=== PATIENT | male | born 1955 | race Caucasian/White ===

== ENCOUNTER 2017-09-15 01:53 | Observation (INO) | payer SELFPAY ==
[2017-09-15 02:48] LABS: Troponin I 0.038 ng/mL (< 0.028)
[2017-09-15] MEDS ORDERED: Enoxaparin Sodium 100 MG/ML SYRINGE ONE (03:00)
[2017-09-15] MEDS ORDERED: Nitroglycerin 2% Ointment 1 INCH/1 GM Packet ONE (03:00)
[2017-09-15] MEDS ORDERED: Acetaminophen 325 MG TAB PO PRN (05:19)
[2017-09-15 06:47] VITALS: BMI 34.6
[2017-09-15] MEDS: Famotidine 20 MG TAB PO SCH ×2 (08:11→20:24)
[2017-09-15 08:19] LABS: CKMB 1.1 ng/mL (0-6.6); Troponin I 0.038 ng/mL (< 0.028)
[2017-09-15] MEDS ORDERED: Tamsulosin HCl 0.4 MG CAP PO SCH (09:00)
[2017-09-15] MEDS ORDERED: Gabapentin 300 MG CAP PO SCH (09:00)
[2017-09-15] MEDS ORDERED: Aspirin 325 MG TAB PO SCH (09:00)
[2017-09-15] MEDS ORDERED: oxyCODONE/Acetaminophen 5 mg/325 mg Tablet PO SCH ×2 (09:00)
[2017-09-15] MEDS ORDERED: Regadenoson 0.4 MG/5 ML SYRINGE ONE (11:05)
[2017-09-15] MEDS ORDERED: Iopamidol 370 76% 50 ML VIAL FS ONE (11:08)
[2017-09-15] MEDS ORDERED: Iopamidol 370 76% 100 ML VIAL ONE (11:08)
[2017-09-15] MEDS ORDERED: Polyethylene Glycol 3350 17 GM Packet PO PRN (13:30)
[2017-09-15] MEDS ORDERED: Betamethasone Val 0.1% Lotion 60 ML BOT TOP PRN (13:30)
[2017-09-15] MEDS ORDERED: Gabapentin 300 MG CAP PO PRN (13:30)
[2017-09-15] MEDS ORDERED: Lidocaine 1% (PF) 30 ML VIAL ONE (13:55)
[2017-09-15] MEDS: oxyCODONE/Acetaminophen 5 mg/325 mg Tablet PO PRN ×2 (14:29→20:24)
[2017-09-15] MEDS ORDERED: Communication Order-Pharmacy FS SCH (15:00)
[2017-09-15] MEDS ORDERED: Heparin 10,000 UNITS/1 ML VIAL ONE (15:32)
[2017-09-15] MEDS ORDERED: Nitroglycerin 100MG/250ML BOT 250 ML ONE (15:32)
--- NOTE | 2017-09-15 15:34 | HP ---
DATE OF ADMISSION: 09/15/2017 CHIEF COMPLAINT: Chest pain. HISTORY OF PRESENT ILLNESS: This is a 61-year-old morbidly obese white male with a known history of bradycardia with pacemaker implantation in more than 4 years ago. The patient was in his usual state of health for the past 1 week suffering with acute chest pain on and off lasting for more than 30-40 minutes. Pain is located in the left precordium, around 10 in intensity, more heaviness and radiati ng to the left shoulder, not associated with nausea or vomiting and aggravated on movement or walking and relieved on resting. The patient came to the ER and was noted to have elevated troponins initia lly and later it was coming down, so the patient was scheduled for a nuclear stress test by the ER ph ysician after discussing with director [facility] Cardiology. Patient was seen on the floor following the stress test. He was alert and oriented, did not appear to be having any acute chest pain right now. Dr. Jus benjamin is consulted who planned to do a cardiac catheterization later today. The patient has otherwise no other comorbidities except for morbid obesity. PAST MEDICAL HISTORY: History of pacemaker. PAST SURGICAL HISTORY: 1. Pacemaker placement. 2. History of colon abscess and a portion of the colon was removed because of that in the past. SOCIAL HISTORY: The patient is not a known smoker. No history of alcohol, no history of illicit kitty g use. FAMILY HISTORY: Patient has significant family history of coronary artery disease in his brother and father at a young age. HOME MEDICATIONS: 1. Gabapentin 300 mg p.o. daily. 2. Oxycodone 1 tab p.o. q.6 hours. 3. Polyethylene glycol. 4. Ranitidine. 5. Sertraline 50 mg p.o. daily. 6. Tamsulosin. 7. Triamcinolone. REVIEW OF SYSTEMS: All 12 systems were reviewed with the patient thoroughly and found to be negative at this time. Systems reviewed, HEENT, CVS, ORACLE DEVELOPER, respiratory, GI, , musculoskeletal, skin and int egument, psychiatric. PHYSICAL EXAMINATION: VITAL SIGNS: Blood pressure is 147/72, heart rate is 62, respiration rate 18, saturation 93% on room air. GENERAL: The patient is moderately built, moderately nourished, does not appear to be in acute distr ess. CARDIOVASCULAR: S1, S2 normal. No murmurs, rubs or gallops. LUNGS: Bilateral air entry was equal. No wheezing, no crackles. ABDOMEN: Soft, nontender, no guarding, no rebound tenderness. Bowel sounds normal. MUSCULOSKELETAL: No calf tenderness. No pedal edema. No joint tenderness. No joint swelling. SKIN: No cyanosis, no erythema, no rash, no pallor. CENTRAL NERVOUS SYSTEM: Cranial nerve examination II through XII intact. No focal deficits were not ed. LABORATORY DATA AND X-RAY FINDINGS: The patient had no labs done in the ER as this was a transfer fr om another ER, his initial troponin was 0.038 and triglycerides were 270. Chest x-ray was unremarkab le according to the ER physician. ASSESSMENT: 1. Acute coronary syndrome. 2. Non-ST elevation myocardial infarction. 3. Morbid obesity. 4. Chronic cervical spine arthritis. 5. History of pacemaker. PLAN: 1. The plan is to closely monitor this patient today. Patient is very uncomfortable going home with this ongoing chest pain. We will keep the patient tonight as the patient is planned for cardiac cat heterization later in the afternoon. The results of the stress test are not available for me at this time. We will follow with the cardiology recommendations. We will continue the patient on a beta b locker and aspirin. 2. The patient has cervical spine arthritis. We will continue with his chronic home medications. 3. The patient has a history of pacemaker. No evidence of any pacemaker abnormalities were noted on the telemetry. We will closely monitor. 4. Morbid obesity. Encourage the patient to lose weight for better health. 5. Deep venous thrombosis prophylaxis. Lovenox 40 mg subcu daily. 1 spent 70 minutes on this patient.
--- NOTE | 2017-09-15 15:35 | NM ---
RADIONUCLIDE STRESS REST MYOCARDIAL PERFUSION SCAN WITH CT ATTENUATION CORRECTION AND SPECT IMAGING LEFT VENTRICULAR WALL MOTION EVALUATION AND EJECTION FRACTION: History: Chest pain. FINDINGS: Lexiscan protocol was used. There is homogeneous uptake of radiotracer throughout the left ventricula r myocardium without focal perfusion defect or reversibility. QGS analysis of gated SPECT images show s no focal wall motion abnormalities. Left ventricular ejection fraction is calculated at 64%. IMPRESSION: Normal myocardial perfusion scan. Normal LDEF. POS: [facility]
[2017-09-15] MEDS ORDERED: Verapamil 5 MG/2 ML VIAL ONE ×2 (15:56→16:04)
[2017-09-15] MEDS ORDERED: Clopidogrel Bisulfate 300 MG TAB ONE (16:03)
[2017-09-15] MEDS ORDERED: Adenosine 6 MG/2 ML VIAL ONE (16:04)
[2017-09-15] MEDS ORDERED: Milk Of Magnesia 30 ML UDCUP PO PRN (16:26)
[2017-09-15] MEDS ORDERED: Nitroglycerin 0.4 MG TAB (25 Tab Bottle) SL PRN (16:26)
[2017-09-15] MEDS ORDERED: cloNIDine 0.1 MG TAB PO PRN (16:26)
[2017-09-15] MEDS ORDERED: Zolpidem Tartrate 5 MG TAB PO PRN (16:26)
[2017-09-15] MEDS ORDERED: Sodium Chloride 0.9% 1,000 ML IV SCH (16:30)
[2017-09-15] MEDS ORDERED: Fentanyl 100 MCG/2 ML VIAL ONE (17:02)
[2017-09-15] MEDS ORDERED: Fentanyl 100 MCG/2 ML VIAL SLOW IVP PRN (17:31)
[2017-09-16] MEDS: oxyCODONE/Acetaminophen 5 mg/325 mg Tablet PO PRN ×2 (03:40→10:46)
[2017-09-16 04:40] LABS: #Basophils 0.1 thou/uL (0.0-0.2); #Eosinphils 0.3 thou/uL (0.0-0.7); #Lymphocytes 2.8 thou/uL (1.20-3.40); #Monocytes 0.5 thou/uL (0.11-0.59); #Neutrophils 3.3 thou/uL (1.40-6.50); %Eosinophils 4.4 % (0.0-10.0); %Lymphocytes 40.8 % (21.0-51.0); %Monocytes 6.7 % (0.0-10.0); %Neutrophils 47.1 % (42.0-75.0); Hemoglobin 15.9 g/dL (14.0-18.0); Mean Corpuscular HGB CONC 34.5 g/dL (32.0-36.0); Mean Corpuscular Hemoglobin 31.1 pg (27.0-31.0); Mean Corpuscular Volume 90.1 fl (80.0-94.0); Mean Platelet Volume 7.9 fL (7.4-10.4); Platelet Count 176 thou/uL (130-400); RBC Distribution Width 12.2 % (11.5-14.5)
[2017-09-16 04:56] LABS: ALT (SGPT) 20 U/L (8-55); AST (SGOT) 20 U/L (5-34); Albumin 3.9 g/dL (3.4-4.8); Alkaline Phosphatase 53 U/L (40-150); Anion Gap 10 mmol/L (10-20); BUN (Urea Nitrogen) 11 mg/dL (8.4-25.7); Bilirubin, Total 0.5 mg/dL (0.2-1.2); Calc. Creatinine Clearance 120 mL/min (70-130); Calcium 9.2 mg/dL (7.8-10.44); Carbon Dioxide 28 mmol/L (23-31); Chloride 105 mmol/L (98-107); Estimated GFR-MDRD 78; Globulin 2.8 g/dL (2.4-3.5); Glucose 72 mg/dL (80-115); Protein, Total 6.7 g/dL (5.8-8.1); Sodium 139 mmol/L (136-145)
--- NOTE | 2017-09-16 08:31 | PDOC.PN ---
- Subjective Encounter Start Date: 09/16/17 Encounter Start Time: 08:29 Mr. Maria was seen today in follow-up of CAd with [facility]. He denies having any chest pain, and denies feeling short of breath. He has walked some without problems. - Objective Resuscitation Status: Resuscitation Status FULL:Full Resuscitation MAR Reviewed: Yes Vital Signs & Weight: Vital Signs (12 hours) Temp Pulse Resp BP BP Pulse Ox 09/16/17 07:15 97.7 F 60 16 148/83 H 93 L 09/16/17 07:07 97.7 F 60 16 09/16/17 03:40 60 18 166/91 H 97 09/16/17 00:32 61 18 150/69 H 93 L 09/16/17 00:00 18 94 L 09/15/17 23:30 61 16 155/68 H 96 09/15/17 22:30 60 18 148/81 H 95 09/15/17 21:30 61 16 130/73 94 L Weight Weight 236 lb 1.6 oz I&O: 09/15/17 09/16/17 09/17/17 06:59 06:59 06:59 Intake Total 750 240 Output Total 475 1825 600 Balance -475 -1075 -360 Result Diagrams: 09/16/17 04:08 09/16/17 04:08 Phys Exam - Physical Examination HEENT: PERRLA Respiratory: no wheezing, no rales, no rhonchi, clear to auscultation bilateral Cardiovascular: RRR, no significant murmur, no rub Gastrointestinal: soft, non-tender, no distention, positive bowel sounds Musculoskeletal: no edema, pulses present Dx/Plan (1) Acute coronary syndrome Code(s): I24.9 - ACUTE ISCHEMIC HEART DISEASE, UNSPECIFIED Status: Acute (2) CAD (coronary artery disease) Code(s): I25.10 - ATHSCL HEART DISEASE OF [place] CORONARY ARTERY W/O ANG PCTRS Status: Acute (3) Hypertension Code(s): I10 - ESSENTIAL (PRIMARY) HYPERTENSION Status: Acute (4) Dyslipidemia Code(s): E78.5 - HYPERLIPIDEMIA, UNSPECIFIED Status: Acute - Plan * Acute Coronary syndrome- patient had a STENT placed to the RCA- he is clinically stable, and chest pain free * HTN- blood pressure sis elevated- would like to add a Beta-cheryl, but his heart rate is already low a 60. Will add Lisinopril instead * Dyslipidemia- will re-start Lipitor. * Disposition as per Cardiology
[2017-09-16] MEDS ORDERED: Tamsulosin HCl 0.4 MG CAP PO SCH (09:00)
[2017-09-16] MEDS ORDERED: Enoxaparin Sodium 40 MG/0.4 ML SYRINGE SC SCH (09:00)
[2017-09-16] MEDS ORDERED: Non-Formulary Item 1 EACH (Ranitidine Hcl [Acid Reducer] 75 MG) PO SCH (09:00)
[2017-09-16] MEDS ORDERED: Lisinopril 5 MG TAB PO SCH (09:00)
[2017-09-16] MEDS ORDERED: Clopidogrel Bisulfate 75 MG TAB PO SCH (09:00)
[2017-09-16] MEDS: Famotidine 20 MG TAB PO SCH (09:15)
--- NOTE | 2017-09-16 09:18 | CON ---
DATE OF CONSULTATION: 09/15/2017 REASON FOR CONSULTATION: Chest pain. HISTORY OF PRESENT ILLNESS: Mr. Maria is a 61-year-old gentleman who has been seen and evaluated b y Cardiology at [place], [place]. He has seen Dr. Beatty. He states over the last 3-4 weeks, he is having increasing angina. His pain is accelerated both in i ntensity, duration and frequency. No ameliorating, exacerbating, or precipitating factors present. No previous history of underlying coronary artery disease. He states he underwent coronary angiograp hy 6-7 years ago and was found to have nonobstructive coronary artery disease. PAST MEDICAL AND SURGICAL HISTORY: Pacemaker, acid reflux, colon resection. SOCIAL HISTORY: Positive tobacco use. ALLERGIES: HYDROCODONE. HOME MEDICATIONS: Include sertraline, tamsulosin, gabapentin, MiraLax, oxycodone, ranitidine, and tr iamcinolone. REVIEW OF SYSTEMS: Ten-point review of systems is reviewed and as above, otherwise negative. PHYSICAL EXAMINATION: GENERAL: Patient is a pleasant male who is in no acute distress. The patient appears his stated age . VITAL SIGNS: Blood pressure 150/83, pulse 61, temperature 97.5. NEUROLOGIC: The patient is alert and oriented times 3 with no focal neurologic deficits. HEENT: Sclerae without icterus. Mouth has moist mucous membranes with normal pallor. NECK: No JVD. Carotid upstroke brisk. No bruits bilaterally. LUNGS: Clear to auscultation with unlabored respirations. BACK: No scoliosis or kyphosis. CARDIAC: Regular rate and rhythm with normal S1 and S2. No S3 or S4 noted. No significant rubs, mu rmurs, thrills, or gallops noted throughout the precordium. PMI is not displaced. There is no lorraine ternal heave. ABDOMEN: Soft, nontender, nondistended. No peritoneal signs present. No hepatosplenomegaly. No ab normal striae. EXTREMITIES: 2+ femoral and 2+ dorsalis pedis pulses. No cyanosis, clubbing, or edema. SKIN: No gross abnormalities. PERTINENT LABORATORY DATA: Peak troponin 0.038, triglyceride 270, CK-MB 1.1. IMAGING: EKG shows paced rhythm. Stress rest myocardial perfusion study, no significant ischemia pr esent. IMPRESSION: 1. Chest pain. 2. Tobacco abuse. RECOMMENDATIONS: Mr. Maria's symptoms certainly suggest unstable angina. His symptoms appear to b e accelerating both in frequency and in duration. I discussed medical therapy versus coronary angiog percy. He has eaten. If angiography is to be performed, it would be performed today without sedatio n. We could also wait until tomorrow. At this point, the patient would like to proceed with angiogr aphy today. He is concerned about continuing symptoms if he goes home to [place]. I discussed t he procedure in full detail with Mr. Maria. The risks of the procedure were also discussed. The r isks of the procedure include but are not limited to the following: , stroke, RI, need for linda gency surgery, loss of limb, bleeding, and infection, as well as a reaction to the dye causing kidney failure and needing long-term dialysis. I also discussed the risks of PCI to include all of the abo ve including coronary dissection and perforation in addition to acute stent thrombosis and restenosis . All questions about the procedure were answered. Given the above, the patient agreed to proceed w ith coronary angiography and possible PCI. I also discussed drug-coated and nondrug coated stent plac lana. He states he can be compliant with Plavix if needed for 1 month. No bleeding issues surgerie s planned, back injections. Further recommendations pending the above.
[2017-09-16 11:54] VITALS: BP 139/83; TEMP 97.9
--- NOTE | 2017-09-17 13:53 | DIS ---
PRIMARY CARE PHYSICIAN: Unknown. DATE OF ADMISSION: 09/15/2017 DATE OF DISCHARGE: 09/16/2017 DISCHARGE DISPOSITION: Home. PRIMARY DISCHARGE DIAGNOSES: 1. Acute coronary syndrome. 2. Coronary artery disease, status post stent placement. 3. History of previous pacemaker placement. DISCHARGE MEDICATIONS: Include lisinopril 5 mg p.o. daily, aspirin 81 mg daily, Plavix 75 mg daily, Neurontin 300 mg t.i.d., oxycodone 5/325 one tablet q.6 as needed, MiraLax 17 grams daily, sertraline 50 mg daily, Flomax 0.4 mg daily, and triamcinolone daily. CODE STATUS: FULL CODE. ALLERGIES: HYDROCODONE. PROCEDURES DONE DURING ADMISSION: The patient had a cardiac catheterization in which there was a sin gle-vessel coronary artery disease, and the patient had a successful PCI to the distal RCA with a kitty g-eluting stent. The patient also had a nuclear stress test, which was negative for any reversible i schemia. HOSPITAL COURSE: Mr. Maria is a pleasant 61-year-old gentleman who presented to the emergency room with complaints of chest pain. He was found to have single-vessel coronary artery disease. He unde rwent emergent cardiac catheterization and stent placement. The following day, he was feeling much b emery, completely chest pain free and no complications from the procedure and as such was able to be discharged home and to have close followup with Dr. Scott in the outpatient setting in 1-2 weeks. He was started on aspirin and Plavix as well as lisinopril. A beta-cheryl was not started due to his resting bradycardia.
== END 2017-09-16 13:07 | disposition home or self-care (01) ==
LOC: ERS 01:53 → 2SW 03:22
PROVIDERS: ADMIT Internal Medicine Infectious Disease; ATTEND Internal Medicine Infectious Disease
PROC: 027034Z Dilation of Coronary Artery, One Artery with Drug-eluting Intraluminal Device, Percutaneous Approach (ICD-10-PCS; principal; 2017-09-16)
DX: Z79.899 Other long term (current) drug therapy; Z88.5 Allergy status to narcotic agent; F17.200 Nicotine dependence, unspecified, uncomplicated; I25.10 Atherosclerotic heart disease of native coronary artery without angina pectoris; I24.9 Acute ischemic heart disease, unspecified; Z95.0 Presence of cardiac pacemaker; E78.5 Hyperlipidemia, unspecified; K21.9 Gastro-esophageal reflux disease without esophagitis; I10 Essential (primary) hypertension
CPT/HCPCS: 36415; 76942; 78452; 80053; 80061; 85025; 85347; 90471; 90732; 92928; 93005; 93010; 93017; 93454; 93798; 94760; 96360; 96361; 96372; A4216; A9500; C1725; C1769; C1874; C1887; C9600; G0009; G0378; J0153; J1644; J1650; J2001; J2785; J3010

== ENCOUNTER 2017-10-30 07:32 | Inpatient (IN) | payer OTHER, SELFPAY ==
[2017-10-30] MEDS ORDERED: Nitroglycerin 0.4 MG TAB (25 Tab Bottle) ONE (07:57)
[2017-10-30 08:14] LABS: #Basophils 0.1 thou/uL (0.0-0.2); #Eosinphils 0.4 thou/uL (0.0-0.7); #Lymphocytes 2.5 thou/uL (1.20-3.40); #Monocytes 0.6 thou/uL (0.11-0.59); #Neutrophils 3.8 thou/uL (1.40-6.50); %Basophils 1.8 % (0.0-1.0); %Lymphocytes 34.3 % (21.0-51.0); %Monocytes 7.9 % (0.0-10.0); Hemoglobin 15.6 g/dL (14.0-18.0); Mean Corpuscular HGB CONC 34.7 g/dL (32.0-36.0); Mean Corpuscular Hemoglobin 31.8 pg (27.0-31.0); Mean Corpuscular Volume 91.8 fl (80.0-94.0); Mean Platelet Volume 7.3 fL (7.4-10.4); Platelet Count 200 thou/uL (130-400); RBC Distribution Width 12.3 % (11.5-14.5); White Blood Cell (WBC) Count 7.4 thou/uL (4.8-10.8)
[2017-10-30] MEDS ORDERED: Nitroglycerin 2% Ointment 1 INCH/1 GM Packet ONE (08:18)
[2017-10-30 08:34] LABS: ALT (SGPT) 24 U/L (8-55); AST (SGOT) 16 U/L (5-34); Alkaline Phosphatase 63 U/L (40-150); Anion Gap 8 mmol/L (10-20); BUN (Urea Nitrogen) 14 mg/dL (8.4-25.7); Bilirubin, Total 0.5 mg/dL (0.2-1.2); CK (CPK) 141 U/L (30-200); Calc. Creatinine Clearance 0 mL/min (70-130); Carbon Dioxide 27 mmol/L (23-31); Chloride 107 mmol/L (98-107); Estimated GFR-MDRD 78; Globulin 3.2 g/dL (2.4-3.5); Glucose 99 mg/dL (80-115); Lipase 34 U/L (8-78); Potassium 4.2 mmol/L (3.5-5.1); Protein, Total 7.2 g/dL (5.8-8.1); Sodium 138 mmol/L (136-145)
[2017-10-30 08:38] LABS: CKMB 1.4 ng/mL (0-6.6); Troponin I 0.094 ng/mL (< 0.028)
[2017-10-30] MEDS ORDERED: Enoxaparin Sodium 100 MG/ML SYRINGE ONE (09:54)
--- NOTE | 2017-10-30 10:18 | RAD ---
PORTABLE CHEST: Date: 10/30/17 HISTORY: Chest pain. COMPARISON: 09/14/17. FINDINGS: Heart size within normal limits. Pacemaker is present. Lungs are clear of any infiltrative process. IMPRESSION: No active intrathoracic disease. POS: [facility]
--- NOTE | 2017-10-30 10:25 | PDOC.FPRHP ---
- History of Present Illness Chief Complaint: Chest Pain History of Present Illness: Uli Jarvis is a 62 year old M with PMH of CAD s/p NSTEMI and Cath with JADEN placed on 09/15/17, morbid obesity, GERD who presents to the ED with chest pain. He states that the chest pain has the exact same characteristics as the chest pain he was having when he had his NSTEMI. He describes the chest pain as substernal, radiating to the left arm and neck. Associated with some diaphoresis and dyspnea, no nausea. He states that he was doing well after his stent placement on 09/15/17 but last week he went to cardiac rehab and he was on the treadmill and he started having the chest pain again. He had the pain about 3-4 times that day. Over the last week, the pain has become progressively more frequent, occurring with minimal exertion and even occurring at rest. He denies any fever, chills, n/v, abdominal pain, syncope. He does endorse orthostasis, states that he gets lightheaded when he quickly goes from sitting to standing. ED Course: In the ED, he received nitro, aspirin 324 mg, Lovenox 1 mg/kg - Allergies/Adverse Reactions Allergies Allergy/AdvReac Type Severity Reaction Status Date / Time hydrocodone Allergy itching Verified 09/15/17 05:36 - Home Medications Medication Instructions Recorded Confirmed Type Gabapentin [Neurontin] 300 mg PO TID PRN 09/15/17 10/30/17 History Polyethylene Glycol 3350 [Miralax] 17 gm PO DAILY PRN 09/15/17 10/30/17 History Ranitidine HCl [Acid Table Maker] 75 mg PO DAILY 09/15/17 10/30/17 History Sertraline HCl 50 mg PO DAILY 09/15/17 10/30/17 History Tamsulosin HCl [Flomax] 0.4 mg PO DAILY 09/15/17 10/30/17 History Triamcinolone Acetonide 1 applic TOP TID PRN 09/15/17 10/30/17 History [Triamcinolone Acetonide 0.1% Lotion] oxyCODONE /Acetaminophen [Percocet] 1 tab PO HS 09/15/17 10/30/17 History Aspirin [Aspirin Chewable Tablet] 81 mg PO DAILY tab 09/16/17 10/30/17 Rx Clopidogrel Bisulfate [Plavix] 75 mg PO DAILY #30 tab 09/16/17 10/30/17 Rx Lisinopril [Zestril] 5 mg PO DAILY #30 tab 09/16/17 10/30/17 Rx Comments: Awaiting for medication reconciliation, unable to obtain at this time. - History PMHx: CAD s/p JADEN placement one month ago, Morbid Obesity, GERD, Diverticulosis s/p colon resection PSHx: colon resection, cardiac cath 09/15/17 FHx: Father had LA and CABG at age 60, brother had LA and CABG at age 45 Social: Patient is a 50-60 pack year smoker, denies illicit drug use, only drinks socially - Review of Systems General: reports: fatigue. denies: fever/chills, weight/appetite/sleep changes , night sweats Eyes: denies: eye pain, vision changes ENT: denies: nasal congestion, rhinorrhea Respiratory: reports: cough, shortness of breath, exercise intolerance. denies : congestion Cardiovascular: reports: chest pain. denies: palpitation, edema, paroxysmal nocturnal dyspnea, orthopnea Gastrointestinal: denies: nausea, vomiting, diarrhea, constipation, abdominal pain Genitourinary: denies: incontinence, dysuria, polyuria, discharge Skin: denies: rashes, lesions, jaundice Musculoskeletal: reports: pain (chronic), arthritis/arthralgias. denies: tenderness, stiffness, swelling Neurological: denies: numbness, syncope, seizure, weakness Psychological: denies: anxiety, depression - Vital signs BP: 108/66 HR: 60 RR: 16 Tmax: 97.9 Pox: 94% on RA Wt: 105 kg - Physical Exam Constitutional: NAD, awake, alert and oriented, well developed HEENT: normocephalic and atraumatic, PERRLA, EOMI, conjunctiva clear, no scleral icterus, TM's clear and intact, grossly normal hearing, normal nasal mucosa, MMM, oropharynx clear Neck: supple, FROM, trachea midline, no LAD Chest: no-tender to palpation, no lesions Heart: RRR, normal S1/S2, no murmurs/rubs/gallops, pulses present Lungs: CTAB, no respiratory distress, good air movement, no rales/rhonchi, no wheezing Abdomen: soft, non-tender, bowel sounds present, no masses/distention Musculoskeletal: normal structure, normal tone, ROM grossly normal Neurological: no focal deficit, CN II-XII intact, normal sensation, DTRs 2+ Skin: no rash/lesions, good turgor, capillary refill <2 seconds Heme/Lymphatic: no unusual bruising or bleeding, no purpura, no petechia Psychiatric: normal mood and affect, good judgment and insight, intact recent and remote memory FMR H&P: Results - Labs Result Diagrams: 10/30/17 08:05 10/30/17 08:05 Lab results: WBC 7.4 thou/uL (4.8-10.8) 10/30/17 08:05 Hgb 15.6 g/dL (14.0-18.0) 10/30/17 08:05 Hct 45.0 % (42.0-52.0) 10/30/17 08:05 MCV 91.8 fl (80.0-94.0) 10/30/17 08:05 Plt Count 200 thou/uL (130-400) 10/30/17 08:05 Neutrophils % 51.0 % (42.0-75.0) 10/30/17 08:05 Sodium 138 mmol/L (136-145) 10/30/17 08:05 Potassium 4.2 mmol/L (3.5-5.1) 10/30/17 08:05 Chloride 107 mmol/L (98-107) 10/30/17 08:05 Carbon Dioxide 27 mmol/L (23-31) 10/30/17 08:05 BUN 14 mg/dL (8.4-25.7) 10/30/17 08:05 Creatinine 0.98 mg/dL (0.6-1.3) 10/30/17 08:05 Glucose 99 mg/dL (80-115) 10/30/17 08:05 Calcium 9.0 mg/dL (7.8-10.44) 10/30/17 08:05 Total Bilirubin 0.5 mg/dL (0.2-1.2) 10/30/17 08:05 AST 16 U/L (5-34) 10/30/17 08:05 ALT 24 U/L (8-55) 10/30/17 08:05 Alkaline Phosphatase 63 U/L (40-150) 10/30/17 08:05 Creatine Kinase 141 U/L (30-200) 10/30/17 08:05 CK-MB (CK-2) 1.4 ng/mL (0-6.6) 10/30/17 08:05 B-Natriuretic Peptide 13.1 pg/mL (0-100) 10/30/17 08:05 Serum Total Protein 7.2 g/dL (5.8-8.1) 10/30/17 08:05 Albumin 4.0 g/dL (3.4-4.8) 10/30/17 08:05 Lipase 34 U/L (8-78) 10/30/17 08:05 - EKG Interpretation EKG: EKG showed electronic atrial pacemaker, no ST changes FMR H&P: A/P - Problem List (1) Unstable angina Current Visit: Yes Status: Acute (2) CAD (coronary artery disease) Current Visit: No Status: Chronic Code(s): I25.10 - ATHSCL HEART DISEASE OF [place] CORONARY ARTERY W/O ANG PCTRS (3) Dyslipidemia Current Visit: No Status: Chronic Code(s): E78.5 - HYPERLIPIDEMIA, UNSPECIFIED (4) Hypertension Current Visit: No Status: Chronic Code(s): I10 - ESSENTIAL (PRIMARY) HYPERTENSION - Plan (1) Unstable Angina: - Hx of recent cath and JADEN placement about one month ago - Symptoms occurring more frequently and now at rest - Received ASA, nitro, and therapeutic lovenox in ER - Cardiology consulted, appreciate recommendations (2) CAD: - s/p JADEN placement on 09/15/17 - continue home meds - s/p pacemaker due to symptomatic bradycardia (3) GERD - Continue home meds (4) HTN - Home meds CODE STATUS: FULL CODE Disposition/LOS: Placed on Tele Obs, anticipate stay <48 hrs at this time. FMR H&P: Upper Level - Pertinent history 62 yo CM with recent history of RCA CAD s/p PCI and drug eluting stunt placement in September 2017 p/w intermittent CP since of this week. Pt endorses substernal CP with radiation to left shoulder and arm that is worsened with exertion and improved with nitro. Pt also endorses episodes of CP at rest. Pt denies current MICHELLE, change in vision, CP, palpitations, SOB, or NVD. Pt also has a history of symptomatic bradycardia s/p pacemaker placement a few years ago. - Pertinent findings Gen: well developed, NAD CV: no chest wall TTP, RRR, 3/6 sys murmur Resp: nonlabored, CTAB Abd: BS+, soft, NTTP Neuro: A&O x3 - Plan Date/Time: 10/30/17 1025 I, Jak Robb MD, have evaluated this patient and agree with findings/plan as outlined by unpaid intern resident. Pertinent changes/additions are listed here. 1. Unstable angina -Patient displays typical symptoms now occurring at rest. No significant EKG changes. Admit to telemetry. Nitro PRN. Therapeutic lovenox. Continue to trend cardiac enzymes. Pt recently had cath with stent placed in RCA, will therefore consult cardiology for further management, recommendations greatly appreciated.
[2017-10-30] MEDS ORDERED: Ondansetron ODT 4 MG TAB PO PRN (11:16)
[2017-10-30] MEDS ORDERED: Ondansetron HCl/PF 4 MG/2 ML Vial IVP PRN (11:16)
[2017-10-30 11:38] LABS: Troponin I 0.099 ng/mL (< 0.028)
[2017-10-30 12:08] VITALS: BMI 34.3
[2017-10-30] MEDS ORDERED: Gabapentin 300 MG CAP PO PRN (12:48)
[2017-10-30] MEDS ORDERED: Polyethylene Glycol 3350 17 GM Packet PO PRN (12:48)
[2017-10-30] MEDS ORDERED: Betamethasone Val 0.1% Lotion 60 ML BOT TOP PRN (12:56)
[2017-10-30] MEDS: Acetaminophen 325 MG TAB PO PRN ×2 (13:42→17:59)
[2017-10-30] MEDS: Nitroglycerin 0.4 MG TAB (25 Tab Bottle) PO PRN ×2 (13:42→20:41)
[2017-10-30 14:25] LABS: CKMB 1.7 ng/mL (0-6.6); Troponin I 0.107 ng/mL (< 0.028)
[2017-10-30] MEDS: Nitroglycerin 2% Ointment 1 INCH/1 GM Packet TOP SCH (17:58)
[2017-10-30] MEDS ORDERED: Carvedilol 3.125 MG TAB PO SCH (18:00)
[2017-10-30 18:06] LABS: CKMB 1.3 ng/mL (0-6.6); Troponin I 0.076 ng/mL (< 0.028)
[2017-10-30] MEDS: guaiFENesin ER 600 MG TAB PO PRN (19:20)
[2017-10-30] MEDS: oxyCODONE/Acetaminophen 5 mg/325 mg Tablet PO SCH (20:28)
[2017-10-30] MEDS: Enoxaparin Sodium 100 MG/ML SYRINGE SC SCH (20:29)
--- NOTE | 2017-10-30 21:16 | CON ---
DATE OF CONSULTATION: 10/30/2017 INDICATION FOR CONSULTATION: This very pleasant 62-year-old gentleman who in September of this year unde rwent angioplasty and stent placement to the distal right coronary artery and he was found to have un stable angina type symptoms. At the time of the cardiac catheterization, he was also found to have a 60% stenosis in the left anterior descending artery as well as 50% proximal right coronary stenosis. The left circumflex was free of any significant flow-limiting disease. Ejection fraction appeared to be relatively normal. He had done relatively well for a short period of time after the stent was placed but then he started developing chest pain again and he started having more significant discomf ort on morning and then on Wednesday, kind of waxed and waned and then evening, he osorio d more pain. The pain would last 2-3 minutes and usually was associated with some type of activity v alve, but he has also occasionally had while he is at rest. He had more pain last night which radiat ed to his left shoulder. It occurred while he was having a cup of coffee. He then presented to the emergency room. Cardiac enzymes show troponin I of 0.094 and increased to 0.099, is now 0.0107. MBs are negative. He did undergo angioplasty and stent placement with a drug-eluting stent, there was a 3.0 x 12 mm Synergy drug-eluting stent to the distal right coronary artery. On 09/15/2017, he had b een given Plavix at that time. Apparently while he was at home, he did not have any nitroglycerin. Also, he was not started on a beta cheryl. According to the records, the beta cheryl was held due to a resting bradycardia; however, the patient does have a pacemaker, which has been inserted prevu y several years ago. At this time, he still continued to have some occasional discomfort when he i s moving about as long as he is stable, sitting in the bed. He has minimal complaints at this time. Unfortunately, this patient still continues to smoke a half a pack of cigarettes a day. PAST MEDICAL HISTORY: His EKG does not show any acute changes. PAST MEDICAL HISTORY: Significant for coronary artery disease and stent placement 09/15/2017, he has a history of pacemaker insertion, had an episode of syncope prior to the pacemaker insertion. He osorio s a history of gastroesophageal reflux disease and a colon resection. ALLERGIES: He is allergic to HYDROCODONE. MEDICATIONS PRIOR TO ADMISSION: Included triamcinolone lotion. He was taking Percocet. He was taki ng ranitidine, MiraLax, Flomax, sertraline, Neurontin, 81 mg of aspirin, Plavix 75 mg a day and lisin opril 5 mg a day. After seeing the patient, I have also placed him back on his Plavix since this has not been reinstated in the hospital, he will go back on his Plavix. He has been started on Lovenox here in the hospital. We will also give him a half inch of nitro paste. I will start him on a beta cheryl since he has a pacemaker and we will start him on Coreg 3.125 mg twice a day. REVIEW OF SYSTEMS: A 12-point review of systems is unremarkable except for what was noted in the his tory of the present illness. He continues to smoke. He has actually had a recent bronchitis and had some coughing. Otherwise, he denied any GI or complaints. No significant musculoskeletal compla ints except for he has multiple areas of arthritis. He also has some problems with some psoriasis. He has degenerative joint disease in his neck, back and shoulders and he also complains of neck, knee and hip pain due to arthritis and he has had an occasional cough which he feels is due to bronchitis . PHYSICAL EXAMINATION: GENERAL: Reveals a well-developed, well-nourished gentleman. VITAL SIGNS: Blood pressure 114/68, heart rate is 69 and regular, respiratory rate is 20. He is afe brile. HEENT: Shows the head to be normocephalic and atraumatic. Carotid pulses are present. I did not he ar any significant bruits. CHEST: Has diffuse scattered rhonchi, but does improve slightly with coughing. He has expiratory wh eezing. CARDIOVASCULAR: Exam reveals a regular rate and rhythm, normal S1, S2. There was no S3, S4. I vimal ot elicit any significant murmurs, heaves, thrills, bruits or rubs. ABDOMEN: Shows obesity. Positive bowel sounds. No organomegaly or masses are noted. Femoral pulse s are present. Pedal pulses are present. There is no lower extremity edema. NEUROLOGIC: The patient appears to be intact. EKG shows atrial pacing with ventricular sensing. LABORATORY DATA: As noted above for the troponin I. Hemoglobin is 15.6 with a white blood cell coun t of 7.4, creatinine 0.98 with a potassium 4.2, and blood sugar was 99. IMPRESSION AND PLAN: 1. Probable unstable angina. We will try to stabilize the patient. If necessary, we will take the patient to the cardiac chemical laboratory tester. If he is continued to have elevation of the cardiac enzymes or shou ld he develop more further chest discomfort, we will start him on beta-blockers as well as his Loveno x, Plavix, and aspirin. We will also give nitroglycerin paste. It would probably best be served by undergoing repeat cardiac catheterization on Wednesday if not sooner for reevaluation of the coronary ar teries and also just to determine whether the stent remains patent in the distal right coronary arter y. Review of the films by myself does show he has significant disease in the mid left anterior desce nding artery as well as the right coronary artery, more significant disease in left anterior descendi ng artery and he may eventually need to undergo angioplasty and stent placement in left anterior desc ending artery or eventually bypass surgery. 2. History of tobacco abuse. I have strongly encouraged him to stop smoking. Obviously, this is no t helping the situation with his coronary artery disease or his drug-coated stents. 3. History of gastroesophageal reflux disease. This appears to be stable at this time and most like ly his discomfort is cardiac and not GI. 4. History of arthritis as well as degenerative joint disease. We may need to reinstate his pain me dications. He is actually on I believe oxycodone at this time. He has also been given Flomax as wel l as his other medicines. We would be more than happy to continue to follow the patient with you. Buck francisco will continue to monitor him very closely for further progression of his unstable angina type sympt oms. Otherwise, he will be kept n.p.o. on Wednesday night for cardiac catheterization on Wednesday.
[2017-10-31] MEDS: Nitroglycerin 2% Ointment 1 INCH/1 GM Packet TOP SCH ×3 (04:13→17:30)
--- NOTE | 2017-10-31 05:59 | PDOC.FM ---
- Subjective Subjective: Uli Jarvis seen at bedside this morning. He was able to get some rest overnight, there were no acute events overnight. He denies any current complaints aside from a mild headache. He states that he has not experienced chest pain since yesterday afternoon. He is scheduled for cardiac cath on Wednesday. - Objective MAR Reviewed: Yes Vital Signs & Weight: Vital Signs (12 hours) Temp Pulse Resp BP BP Pulse Ox 10/31/17 04:13 97.9 F 62 16 119/76 94 L 10/30/17 23:12 98.1 F 61 16 119/74 97 10/30/17 20:41 61 16 147/76 H 10/30/17 19:20 98.2 F 62 20 135/76 93 L Weight Weight 107.683 kg I&O: 10/29/17 10/30/17 10/31/17 06:59 06:59 06:59 Intake Total 730 Output Total 1150 Balance -420 Result Diagrams: 10/30/17 08:05 10/30/17 08:05 Phys Exam - Physical Examination Constitutional: NAD HEENT: moist MMs, sclera anicteric Neck: no JVD, supple, full ROM Respiratory: no wheezing, no rales, no rhonchi, clear to auscultation bilateral Cardiovascular: RRR, no significant murmur Gastrointestinal: soft, non-tender, no distention Musculoskeletal: no edema, pulses present Neurological: non-focal, normal sensation, moves all 4 limbs Psychiatric: normal affect, A&O x 3 Skin: no rash, normal turgor Dx/Plan (1) Unstable angina Status: Acute (2) CAD (coronary artery disease) Code(s): I25.10 - ATHSCL HEART DISEASE OF [place] CORONARY ARTERY W/O ANG PCTRS Status: Chronic (3) Dyslipidemia Code(s): E78.5 - HYPERLIPIDEMIA, UNSPECIFIED Status: Chronic (4) Hypertension Code(s): I10 - ESSENTIAL (PRIMARY) HYPERTENSION Status: Chronic - Plan Plan: (1) Unstable Angina: - Hx of recent cath and JADEN placement about one month ago - Symptoms occurring more frequently and now at rest - Received ASA, nitro, and therapeutic lovenox in ER - Cardiology consulted, appreciate recommendations - Continue ASA, Plavix, nitro, and lovenox - Started on coreg - Cardiac cath scheduled for wednesday morning (2) CAD: - s/p JADEN placement on 09/15/17 - continue home meds - s/p pacemaker due to symptomatic bradycardia (3) GERD - Continue home meds (4) HTN - Home meds
[2017-10-31] MEDS: Acetaminophen 325 MG TAB PO PRN (06:37)
[2017-10-31] MEDS: Lisinopril 5 MG TAB PO SCH (08:11)
[2017-10-31] MEDS: Clopidogrel Bisulfate 75 MG TAB PO SCH (08:11)
[2017-10-31] MEDS: Carvedilol 3.125 MG TAB PO SCH ×2 (08:11→17:30)
[2017-10-31] MEDS: Enoxaparin Sodium 100 MG/ML SYRINGE SC SCH ×2 (08:12→20:58)
[2017-10-31] MEDS: Famotidine 20 MG TAB PO SCH (08:12)
[2017-10-31] MEDS: Tamsulosin HCl 0.4 MG CAP PO SCH (08:12)
--- NOTE | 2017-10-31 08:52 | PDOC.CTH ---
<Lashaun Mulligan - Last Filed: 10/31/17 08:50> Cardiology Progress Note - Subjective The pt seen and examined. No overnight events. No cardiac complaints. He has walked to bathroom several times without any cardiac complaints. - Objective Vital Signs Temp Pulse Resp BP Pulse Ox 10/31/17 07:25 98.3 F 66 16 137/86 94 L 10/31/17 04:13 97.9 F 62 16 119/76 94 L 10/30/17 23:12 98.1 F 61 16 119/74 97 Weight 237 lb 6.4 oz 10/30/17 10/31/17 11/01/17 06:59 06:59 06:59 Intake Total 730 Output Total 1150 Balance -420 - Physical Examination General/Neuro: alert & oriented x3 Neck: no JVD present Lungs: CTA Heart: RRR Abdomen: soft Extremities: other: (No edema) - Telemetry Telemetry Rhythm: SR PACs - Labs Result Diagrams: 10/30/17 08:05 10/30/17 08:05 Troponin/CKMB CK-MB (CK-2) 1.3 ng/mL (0-6.6) 10/30/17 17:35 Troponin I 0.076 ng/mL (< 0.028) H 10/30/17 17:35 - Assessment/Plan 1. Unstable angina with Hx of CAD with 60% stenosis in mid LAD and 50% in Pro. RCA with stent in dist. RCA - stable with NTG paste, ASA, Plavix, Bblocker, and MITESH. cont. to monitor on tele; Plan for cath tomorrow by Dr Wyatt 2. HTN - stable with current medication 3. Hyperlipidemia - LDL on 09/29/17 was 107; Will start Statin at discharge 4. GERD - stable; managed by PCP 5. Smoker - The pt stated he will not smoke any more. The smoking cessation education given to the pt. MAR reviewed * The procedure and the risk of Cardiac cath were explained: including, but not limited to: infection, hemorrhage, perforation of cath, thrombosis, CVA, MT, allergic reaction to Iodine, and possible . The pt voiced understanding and agreed to proceed the procedure. Review of Systems - Review of Systems Constitutional: reports: no symptoms reported EENTM: reports: no symptoms reported Respiratory: reports: no symptoms reported Cardiac (ROS): reports: no symptoms reported ABD/GI: reports: no symptoms reported : reports: no symptoms reported <Jus Miller - Last Filed: 10/31/17 21:58> Cardiology Progress Note - Objective Vital Signs Temp Pulse Resp BP Pulse Ox 10/31/17 17:31 60 159/70 H 10/31/17 14:55 97.9 F 61 18 136/82 95 10/31/17 11:35 97.7 F 67 20 145/80 H 95 Weight 237 lb 6.4 oz 10/30/17 10/31/17 11/01/17 06:59 06:59 06:59 Intake Total 730 240 Output Total 1150 2050 Balance -420 -1810 - Labs Result Diagrams: 10/30/17 08:05 10/30/17 08:05 Troponin/CKMB CK-MB (CK-2) 1.3 ng/mL (0-6.6) 10/30/17 17:35 Troponin I 0.076 ng/mL (< 0.028) H 10/30/17 17:35 - Assessment/Plan Pt. seen and eval. by me. I agree with the A/P by the MANAGER OF PHOTOGRAPHY. We have discussed the plan. Pt.'s chest pain resolved after adjusting meds, adding betablocker. Chest clear. RRR.
[2017-10-31] MEDS ORDERED: Enoxaparin Sodium 40 MG/0.4 ML SYRINGE SC SCH (09:00)
[2017-10-31] MEDS: guaiFENesin ER 600 MG TAB PO PRN (12:14)
--- NOTE | 2017-10-31 13:12 | ADD-PRG ---
DATE OF SERVICE: 10/31/2017 Please see the note from Dr. Pinzon, for which I concur. The patient was seen, evaluated, examined, and discussed with the residents by bedside. Basically, t his gentleman is still having intermittent chest pain and is on the schedule for heart catheterizatio n tomorrow. Troponin levels never got that high and are trending downward and otherwise have been st able as far as blood pressure and telemetry zaman, and no other major changes currently. So, plan is to continue same medicines and we will proceed with heart catheterization tomorrow per Ca rdiology.
--- NOTE | 2017-10-31 14:05 | ADD-HP ---
Please see the note from Dr. Pinzon, for which I concur. HISTORY OF PRESENT ILLNESS: This is a gentleman, who just had a heart catheterization and a PTCA don e just about a month ago on 09/16/2017, who for the last 3 days, after getting outpatient cardiac oh abilitation, started developing chest pain on the treadmill and has continued to have intermittent ch est pain since then. The troponin is a little bit high at 0.094, which is actually higher than even when he was here last month. The heart catheterization did show a successful PCI to the distal RCA, but did say multiple vessel disease, 60% stenosis of the LAD, 99% stenosis on the distal RCA that was stented and the proximal RCA 50% stenosis, and 40% stenosis in a different place as well. PAST MEDICAL HISTORY, SOCIAL HISTORY, PAST SURGICAL HISTORY, FAMILY HISTORY, AND REVIEW OF SYSTEMS: Per the resident's history and physical, for which I concur. PHYSICAL EXAMINATION: CHEST: Clear. CARDIOVASCULAR: Regular rate and rhythm. No other major changes. LABORATORY DATA: Significant for the slightly elevated troponin. ASSESSMENT AND PLAN: Coronary artery disease with chest pain and elevated troponin. Certainly, we w ill admit and put him on anticoagulants and get Cardiology involved. May need to get a heart cathete rization again. We will trend the troponins for now and get cardiology's opinion, but otherwise, con tinue home blood pressure medicines and cholesterol medications.
[2017-10-31] MEDS ORDERED: Communication Order-Pharmacy FS SCH (20:00)
[2017-10-31] MEDS: oxyCODONE/Acetaminophen 5 mg/325 mg Tablet PO SCH (20:59)
[2017-10-31] MEDS: guaiFENesin 200 MG TAB PO SCH (20:59)
[2017-10-31] MEDS ORDERED: guaiFENesin ER 600 MG TAB PO SCH (21:00)
[2017-10-31] MEDS: Nitroglycerin 0.4 MG TAB (25 Tab Bottle) PO PRN (23:57)
[2017-11-01] MEDS: Nitroglycerin 2% Ointment 1 INCH/1 GM Packet TOP SCH ×3 (01:43→17:41)
[2017-11-01] MEDS: guaiFENesin 200 MG TAB PO SCH ×6 (01:44→21:58)
[2017-11-01 05:41] LABS: #Basophils 0.1 thou/uL (0.0-0.2); #Eosinphils 0.4 thou/uL (0.0-0.7); #Lymphocytes 3.2 thou/uL (1.20-3.40); #Monocytes 0.5 thou/uL (0.11-0.59); #Neutrophils 2.9 thou/uL (1.40-6.50); %Basophils 1.4 % (0.0-1.0); %Eosinophils 5.6 % (0.0-10.0); %Lymphocytes 44.9 % (21.0-51.0); %Monocytes 7.3 % (0.0-10.0); %Neutrophils 40.8 % (42.0-75.0); Hemoglobin 15.9 g/dL (14.0-18.0); Mean Corpuscular HGB CONC 34.2 g/dL (32.0-36.0); Mean Corpuscular Hemoglobin 31.4 pg (27.0-31.0); Mean Platelet Volume 8.3 fL (7.4-10.4); Platelet Count 185 thou/uL (130-400); RBC Distribution Width 12.2 % (11.5-14.5); Red Blood Cell (RBC) Count 5.06 mill/uL (4.70-6.10)
[2017-11-01 05:52] LABS: Anion Gap 11 mmol/L (10-20); BUN (Urea Nitrogen) 12 mg/dL (8.4-25.7); Calc. Creatinine Clearance 114 mL/min (70-130); Calcium 9.9 mg/dL (7.8-10.44); Carbon Dioxide 26 mmol/L (23-31); Chloride 104 mmol/L (98-107); Estimated GFR-MDRD 74; Glucose 95 mg/dL (80-115); Potassium 4.3 mmol/L (3.5-5.1); Sodium 137 mmol/L (136-145)
[2017-11-01] MEDS: Famotidine 20 MG TAB PO SCH (06:04)
[2017-11-01] MEDS: Tamsulosin HCl 0.4 MG CAP PO SCH (06:05)
[2017-11-01] MEDS: Carvedilol 3.125 MG TAB PO SCH ×2 (06:05→17:42)
[2017-11-01] MEDS: Lisinopril 5 MG TAB PO SCH (06:05)
[2017-11-01] MEDS: Acetaminophen 325 MG TAB PO PRN ×2 (08:17→15:30)
[2017-11-01] MEDS: Nitroglycerin 0.4 MG TAB (25 Tab Bottle) PO PRN (08:17)
--- NOTE | 2017-11-01 09:14 | PDOC.FM ---
- Subjective Subjective: Pt had 2 episodes of chest pain overnight. There was an EKG performed after the initial episode which was stable from prior. Both episodes of chest pain were similar to those he has had in the past prior to stent placement and relieved by nitro. Pt had episode of chest pain while I was at bedside and nitro was given with near immediate cessation of pain after Nitro administration. Pt is scheduled for cardiac cath today and per nurse was supposed to be taken for procedure around 8am. Repat EKG is pending at this time. Otherwise, no other events/complaints. - Objective Vital Signs & Weight: Vital Signs (12 hours) Temp Pulse Resp BP BP BP Pulse Ox 11/01/17 06:05 66 149/84 H 11/01/17 04:56 97.7 F 66 13 149/84 H 149/84 H 95 10/31/17 23:53 63 16 124/62 91 L Weight Weight 107.683 kg I&O: 10/31/17 11/01/17 11/02/17 06:59 06:59 06:59 Intake Total 730 480 Output Total 1150 3450 Balance -420 -2970 Result Diagrams: 11/01/17 05:06 11/01/17 05:06 <Kevin Reyes - Last Filed: 11/01/17 09:11> - Objective Vital Signs & Weight: Vital Signs (12 hours) Temp Pulse Resp BP BP BP Pulse Ox 11/01/17 06:05 66 149/84 H 11/01/17 04:56 97.7 F 66 13 149/84 H 149/84 H 95 10/31/17 23:53 63 16 124/62 91 L Weight Weight 107.683 kg I&O: 10/31/17 11/01/17 11/02/17 06:59 06:59 06:59 Intake Total 730 480 Output Total 1150 3450 Balance -420 -2970 Result Diagrams: 11/01/17 05:06 11/01/17 05:06 <Alex Ramos - Last Filed: 11/01/17 11:52> Phys Exam - Physical Examination Mildly distressed HEENT: PERRLA, moist MMs, sclera anicteric Neck: no nodes, no JVD, supple Respiratory: no wheezing, no rales, no rhonchi, clear to auscultation bilateral Cardiovascular: RRR, no significant murmur, no rub Gastrointestinal: soft, non-tender, no distention, positive bowel sounds Musculoskeletal: no edema, pulses present Neurological: non-focal, normal sensation Skin: no rash, cap refill <2 seconds <Kevin Reyse - Last Filed: 11/01/17 09:11> Dx/Plan (1) Unstable angina Status: Acute (2) CAD (coronary artery disease) Code(s): I25.10 - ATHSCL HEART DISEASE OF [place] CORONARY ARTERY W/O ANG PCTRS Status: Chronic (3) Dyslipidemia Code(s): E78.5 - HYPERLIPIDEMIA, UNSPECIFIED Status: Chronic (4) Hypertension Code(s): I10 - ESSENTIAL (PRIMARY) HYPERTENSION Status: Chronic - Plan Plan: (1) Unstable Angina: - Hx of recent cath and JADEN placement about one month ago - Symptoms occurring more frequently and now at rest and pt had witnessed active episode of CP while at bedside, relieved by SL nitro - Pt will be taken for cardiac cath today -Cardiology consulted, appreciate recs -relieved by nitro, hold ASA and lovenox 2/2 cardiac cath today (2) CAD: - s/p JADEN placement on 09/15/17 - continue home meds - s/p pacemaker due to symptomatic bradycardia -will need repeat cath today -cards consulted, appreciate recs (3) GERD - Continue home meds (4) HTN - Home meds <Kevin Reyes - Last Filed: 11/01/17 09:11> Attending Addendum - Attending Addendum Date/Time: 11/01/17 1150 I personally evaluated the patient and discussed the management with Dr. Reyes I agree with the History, Examination, Assessment and Plan documented above with any addition or exceptions noted below. Patient free of chest pain at present currently awaiting Heart Catheterization today for Further rec per Cardiology. <Alex Ramos - Last Filed: 11/01/17 11:52>
[2017-11-01] MEDS ORDERED: Lidocaine 1% (PF) 30 ML VIAL ONE (11:48)
--- NOTE | 2017-11-01 13:01 | EKG ---
Test Reason : STAT Blood Pressure : / mmHG Vent. Rate : 060 BPM Atrial Rate : 060 BPM P-R Int : 178 ms QRS Dur : 092 ms QT Int : 420 ms P-R-T Axes : 043 021 049 degrees QTc Int : 420 ms Atrial-paced rhythm Abnormal ECG When compared with ECG of 30-OCT-2017 07:38, (Unconfirmed) No significant change was found Confirmed by ARGENIS COLEMAN, . STushar (4) on 11/01/2017 1:00:53 PM Referred By: SANDRA Confirmed By:DR. Jose MORE MD
--- NOTE | 2017-11-01 13:02 | EKG ---
Test Reason : Blood Pressure : / mmHG Vent. Rate : 060 BPM Atrial Rate : 060 BPM P-R Int : 176 ms QRS Dur : 094 ms QT Int : 430 ms P-R-T Axes : 029 -06 043 degrees QTc Int : 430 ms Atrial-paced rhythm Abnormal ECG When compared with ECG of 31-OCT-2017 23:56, (Unconfirmed) No significant change was found Confirmed by ARGENIS COLEMAN, STushar (4) on 11/01/2017 1:01:44 PM Referred By: JOSE J Confirmed By:DR. Jose MORE MD
[2017-11-01] MEDS ORDERED: Nitroglycerin 0.4 MG TAB (25 Tab Bottle) SL PRN (13:09)
[2017-11-01] MEDS ORDERED: Sodium Chloride 0.9% 200 ML IV PRN (13:15)
[2017-11-01] MEDS ORDERED: Sodium Chloride 0.9% 1,000 ML IV SCH (13:15)
[2017-11-01] MEDS: Clopidogrel Bisulfate 75 MG TAB PO SCH (15:26)
[2017-11-01] MEDS ORDERED: Communication Order-Pharmacy FS ONE (17:11)
[2017-11-01 17:44] LABS: INR-International Normal Ratio 1.1; PTT 37.6 SEC (22.9-36.1)
--- NOTE | 2017-11-01 20:51 | CON ---
DATE OF CONSULTATION: 11/01/2017 REQUESTING PHYSICIAN: Dr. Scott. PRIMARY CARE PHYSICIAN: Dr. Rohan Gonzalez. CHIEF COMPLAINT: Substernal chest pain. HISTORY OF PRESENT ILLNESS: The patient is a 62-year-old smoker with a positive family history of co ronary disease. About 6 weeks ago, he presented with a crescendo pattern of angina with minimally el evated troponin. He had nuclear stress tests that showed an EF in the mid 60s and no obvious perfusi on defects, but had typical enough pain that he underwent cardiac catheterization. He was found to h ave modest LAD disease that are very high grade distal right coronary lesion which was stented using a drug-eluting stent. He had good relief of his angina, but still had the lack of energy that he had been experiencing for about a year or year and a half. A few days ago, he redeveloped the same heber kristyn of chest pain and repeat cardiac catheterization demonstrates patency of his stent, but the devel opment of the high grade lesion in the right coronary just proximal to it as well as progression of h is more proximal lesion. PAST MEDICAL HISTORY: Significant for hypertension, symptomatic bradycardia, now status post dual-ch levy pacemaker placement, psoriasis. PAST SURGICAL HISTORY: He has had a previous colon resection for diverticular disease. HOME MEDICATIONS: Flomax 1 a day, Zoloft 50 mg a day, Zantac 75 mg a day, lisinopril 5 mg a day, [place] rontin 300 mg t.i.d. p.r.n., Plavix 75 mg a day, aspirin 81 mg a day and triamcinolone cream to his p soriasis patches. CURRENT MEDICATIONS: Baby aspirin a day, Plavix 75 mg a day, betamethasone valerate t.i.d., Coreg 3. 125 mg b.i.d., lisinopril 5 mg a day, nitro paste 1/2 inch 3 times a day, holding the bedtime dose of Zoloft 50 mg a day, Flomax 0.4 mg a day, Neurontin 300 mg t.i.d. p.r.n. ALLERGIES: He reports an allergy to HYDROCODONE, which causes a pruritic rash. FAMILY HISTORY: Significant for his father having had coronary disease and undergone coronary artery bypass grafting in his 70s. He has a brother had coronary disease manifest in his 40s. He had an u ncle who had required a pacemaker. REVIEW OF SYSTEMS: Negative for any transient high speech, facial or extremity symptoms to suggest T IAs. It is positive for his poor exercise tolerance. Positive for episodic depressive mood. PHYSICAL EXAMINATION: GENERAL: He is in no distress. VITAL SIGNS: Height is 5 feet 6: Weight is 237-1/2 pounds. Heart rate is in the low to mid 60s, bl ood pressure 149/84, temperature 97.7, room air sats are in the low to mid 90s. He has no obvious xa nthelasma. NECK: No JVD, no carotid bruits. LUNGS: Chest is clear to auscultation. CARDIOVASCULAR: He has regular rate and rhythm. ABDOMEN: Soft and nontender with a well healed surgical scar that almost appears to be a Pfannenstie l type incision. EXTREMITIES: He has easily palpable radial and posterior tibial pulses bilaterally. His right dorsa lis pedis pulses somewhat diminished. His left dorsalis pedis pulse is strong. He has no obvious va ricosities. He has about a 3-4 inch diameter dry scaly psoriasis patch anteriorly and medially at th e right ankle. He has no clubbing, cyanosis or edema. IMAGING: His chest x-ray shows prominent vasculature almost appearing represent edema, but no cardio megaly or aortic knob calcifications visible. LABORATORY: Showed a white count of 7.4, hemoglobin 15.6, hematocrit 45.0, platelets 200,000. Haley l electrolytes. Glucose 99, BUN 14, creatinine 0.98. LFTs are normal. Calcium 9.0, protein 7.2, al bumin 4.1. Troponins were 0.099, 0.107 and 0.076. BNP was 13.1. His cardiac catheterization shows 80%-90% lesions in his right coronary artery proximally just beyond a small acute marginal or atrial branch and an 80%-90% lesion immediately proximal to a patent stent. He has a long 60%-70% PDA lesio n. The very proximal portion of his posterior lateral branch off of the right seems a reasonable noelle iber, but very quickly becomes a small vessel. He is right dominant. On the left-sided injections, he has a long area of diffuse hazy disease in the 60% range in the proximal portion of the LAD. Ther e is involved diagonal coming off a little bit proximal to that septal accounting office manager, rather large OM1 w ith minimal disease in it. Echocardiography currently is pending. ASSESSMENT AND PLAN: Rapid recurrence of angina with persistent poor exercise tolerance with severe 2-vessel disease. We will plan on surgical revascularization.
[2017-11-01] MEDS: oxyCODONE/Acetaminophen 5 mg/325 mg Tablet PO SCH (21:54)
[2017-11-02] MEDS: Nitroglycerin 2% Ointment 1 INCH/1 GM Packet TOP SCH (01:11)
[2017-11-02] MEDS: guaiFENesin 200 MG TAB PO SCH ×2 (01:12→04:50)
[2017-11-02] MEDS: Carvedilol 3.125 MG TAB PO SCH (04:56)
[2017-11-02] MEDS: Lisinopril 5 MG TAB PO SCH (04:56)
[2017-11-02] MEDS ORDERED: CABG-Vancomycin 1 GM in Premix Bag 1 BAG IVPB SCH (05:00)
[2017-11-02] MEDS ORDERED: Heparin 10,000 UNITS/1 ML VIAL 30,000 UNITS in Sodium Chloride 0.9% 1,000 ML FS SCH (06:30)
[2017-11-02] MEDS ORDERED: Dexmedetomidine 200 MCG/2 ML VIAL ONE (06:36)
[2017-11-02] MEDS ORDERED: CEFAZOLIN/Water 2 GM/20 ML SYRINGE ONE (06:42)
[2017-11-02] MEDS ORDERED: hydrALAZINE 20 MG/ML VIAL SLOW IVP PRN (06:52)
[2017-11-02] MEDS ORDERED: Nitroglycerin 50 MG/250 ML BOT 250 ML IVPB PRN (06:52)
[2017-11-02] MEDS ORDERED: Norepinephrine 8 MG/0.9% NS 250 ML IVPB PRN (06:52)
[2017-11-02] MEDS ORDERED: Fentanyl 100 MCG/2 ML VIAL SLOW IVP PRN (06:52)
[2017-11-02] MEDS ORDERED: Promethazine HCl 25 MG/ML VIAL IM PRN (06:52)
[2017-11-02] MEDS ORDERED: Bisacodyl 10 MG SUPP PR PRN (06:52)
[2017-11-02] MEDS ORDERED: Acetaminophen 325 MG TAB PO PRN (06:52)
[2017-11-02] MEDS ORDERED: Bisacodyl 5 MG TAB PO PRN (06:52)
[2017-11-02] MEDS ORDERED: Post-Op Insulin Drip Protocol IVPB ONE (06:52)
[2017-11-02] MEDS ORDERED: Mag-Al 1200 mg/1200 mg/30 ML UDCUP PO PRN (06:52)
[2017-11-02] MEDS ORDERED: Hetastarch 6% 500 ML 500 ML IVPB PRN (06:52)
[2017-11-02] MEDS ORDERED: Potassium Chloride 20 MEQ/100 ML PREMIX BAG IVPB PRN (06:52)
[2017-11-02] MEDS ORDERED: Ondansetron HCl/PF 4 MG/2 ML Vial IVP PRN (06:52)
[2017-11-02] MEDS ORDERED: Guaifenesin DM 100-10/5 ML UDCUP PO PRN (06:52)
[2017-11-02] MEDS ORDERED: Calcium Chloride 1 GM/10 ML Abboject SYRINGE ONE (07:20)
[2017-11-02] MEDS ORDERED: Norepinephrine 4 MG/4 ML VIAL ONE (07:20)
[2017-11-02] MEDS ORDERED: Vecuronium 10 MG VIAL ONE (07:20)
[2017-11-02] MEDS ORDERED: Heparin 5,000 UNITS/ML VIAL ONE (07:20)
[2017-11-02] MEDS ORDERED: PHENYLEPHRINE-NS 100 MCG/ML 10 ML SYRINGE ONE ×2 (07:20→09:22)
[2017-11-02] MEDS ORDERED: PROPOFOL 200 MG/20 ML VIAL ONE (07:20)
[2017-11-02] MEDS ORDERED: Dextrose 50% Abboject 50 ML SYRINGE ONE (07:20)
[2017-11-02] MEDS ORDERED: Lidocaine 1% PF 5 ML VIAL ONE (07:20)
[2017-11-02] MEDS ORDERED: Heparin 30,000 units/30 ml VIAL ONE (07:20)
[2017-11-02] MEDS ORDERED: Protamine Sulfate 250 MG/25 ML VIAL ONE (07:20)
[2017-11-02] MEDS ORDERED: CEFAZOLIN 1 GM VIAL ONE (07:20)
[2017-11-02] MEDS ORDERED: Papaverine 60 MG/2 ML VIAL ONE (07:20)
[2017-11-02] MEDS ORDERED: Sodium Bicarb 50 MEQ/50 ML Abboject 8.4% SYRINGE ONE (07:20)
[2017-11-02] MEDS ORDERED: Midazolam HCl 5 mg/5 ml Vial ONE ×2 (07:26→11:23)
[2017-11-02] MEDS ORDERED: Phenylephrine HCL 10 MG/ML VIAL ONE (09:22)
[2017-11-02] MEDS ORDERED: Albumin 5% 500 ML ONE ×2 (10:11→12:17)
[2017-11-02] MEDS ORDERED: Insulin Regular 300 UNITS/3 ML VIAL ONE (11:00)
[2017-11-02] MEDS ORDERED: Rocuronium Bromide 50 MG/5 ML VIAL ONE (13:03)
[2017-11-02 13:47] LABS: #Basophils 0.1 thou/uL (0.0-0.2); #Eosinphils 0.2 thou/uL (0.0-0.7); #Lymphocytes 2.3 thou/uL (1.20-3.40); #Neutrophils 12.6 thou/uL (1.40-6.50); %Basophils 0.4 % (0.0-1.0); %Eosinophils 1.3 % (0.0-10.0); %Lymphocytes 14.3 % (21.0-51.0); %Monocytes 6.2 % (0.0-10.0); %Neutrophils 77.9 % (42.0-75.0); Hemoglobin 13.6 g/dL (14.0-18.0); Mean Corpuscular Hemoglobin 31.4 pg (27.0-31.0); Mean Corpuscular Volume 92.6 fl (80.0-94.0); Platelet Count 133 thou/uL (130-400); RBC Distribution Width 12.1 % (11.5-14.5); Red Blood Cell (RBC) Count 4.34 mill/uL (4.70-6.10); White Blood Cell (WBC) Count 16.2 thou/uL (4.8-10.8)
[2017-11-02 13:55] LABS: INR-International Normal Ratio 1.4; PTT 32.4 SEC (22.9-36.1); Prothrombin Time 17.3 SEC (12.0-14.7)
[2017-11-02 14:05] LABS: Potassium 4.1 mmol/L (3.5-5.1)
[2017-11-02 14:17] LABS: Actual Bicarbonate (HCO3a) 24.2 mEq/L (22-26); Base Excess (BEa) -1.7 mEq/L (0 (+/-) 2.5); CO2 Tension 45.4 mmHg (35.0-45.0); O2 Tension (PaO2) 79.6 mmHg (80.0-100.0); pH, Arterial 7.35 (7.35-7.45)
[2017-11-02 14:18] LABS: Calcium, Ionized 1.2 mmol/L (1.12-1.30); Hematocrit-ABG 37.3 % (42.0-52.0); Hemoglobin (Hb) 13.4 g/dL (14.0-18.0); Puncture Site ALINE
[2017-11-02 14:23] LABS: Anion Gap 8 mmol/L (10-20); BUN (Urea Nitrogen) 11 mg/dL (8.4-25.7); Calc. Creatinine Clearance 152 mL/min (70-130); Calcium 8.2 mg/dL (7.8-10.44); Carbon Dioxide 24 mmol/L (23-31); Chloride 112 mmol/L (98-107); Estimated GFR-MDRD Greater than 90; Glucose 153 mg/dL (80-115); Potassium 4.2 mmol/L (3.5-5.1); Sodium 140 mmol/L (136-145)
--- NOTE | 2017-11-02 14:32 | PDOC.FM ---
- Subjective Subjective: Pt was taken for cath yesterday afternoon and cath revealed 2-vessel disease. CV surgery was then consulted for further management and CABG. Pt was immediately post-op when seen, still intubated with chest tubes in place in addition to b/l a-lines and a central line. Levophed being titrated to maintain MAP >60. Family not at bedside. - Objective Vital Signs & Weight: Vital Signs (12 hours) Temp Pulse Resp BP BP Pulse Ox 11/02/17 13:41 80 11/02/17 04:56 61 102/70 11/02/17 04:00 97.5 F L 66 18 143/65 H 95 Weight Weight 107.683 kg Most Recent Monitor Data Heart Rate from ECG 70 NIBP 133/88 NIBP BP-Mean 114 SpO2 93 I&O: 11/01/17 11/02/17 11/03/17 06:59 06:59 06:59 Intake Total 480 600 Output Total 3450 550 Balance -2970 50 Result Diagrams: 11/02/17 13:38 11/02/17 13:38 <Kevin Reyes - Last Filed: 11/02/17 14:29> - Objective Vital Signs & Weight: Vital Signs (12 hours) Temp Pulse Resp Pulse Ox 11/03/17 07:47 98.5 F 91 16 95 11/03/17 07:23 95 11/03/17 05:00 98.6 F 11/03/17 00:00 98.4 F 11/02/17 23:00 98.4 F Weight Weight 108.136 kg Most Recent Monitor Data Heart Rate from ECG 91 NIBP 98/69 NIBP BP-Mean 85 Respiration from ECG 14 SpO2 97 I&O: 11/02/17 11/03/17 11/04/17 06:59 06:59 06:59 Intake Total 600 2328 0 Output Total 550 1700 140 Balance 50 628 -140 Result Diagrams: 11/03/17 04:00 11/03/17 04:00 <Lisa Scherer - Last Filed: 11/03/17 08:30> Phys Exam - Physical Examination Sedated, intubated. HEENT: moist MMs, sclera anicteric Neck: no nodes, no JVD coarse breath sounds throughout, intubated Cardiovascular: RRR distant heart sounds Gastrointestinal: soft, non-tender Musculoskeletal: no edema, pulses present sedated, soft restraints in place Skin: cap refill <2 seconds <Kevin Reyes - Last Filed: 11/02/17 14:29> Dx/Plan (1) S/P CABG (coronary artery bypass graft) Code(s): Z95.1 - PRESENCE OF AORTOCORONARY BYPASS GRAFT Status: Acute (2) Unstable angina Status: Acute (3) CAD (coronary artery disease) Code(s): I25.10 - ATHSCL HEART DISEASE OF [place] CORONARY ARTERY W/O ANG PCTRS Status: Chronic (4) Dyslipidemia Code(s): E78.5 - HYPERLIPIDEMIA, UNSPECIFIED Status: Chronic (5) Hypertension Code(s): I10 - ESSENTIAL (PRIMARY) HYPERTENSION Status: Chronic - Plan Plan: (1) S/P CABG: Manage post-operatively per CV surg -currently intubated, chest tubes in place, b/l a-lines and central line. -CV surg consulted, appreciate recs -Final op report pending 2)Unstable Angina: - Hx of recent cath and JADEN placement about one month ago - Symptoms occurring more frequently and now at rest and pt had witnessed active episode of CP while at bedside, relieved by SL nitro - Pt was taken for cardiac cath yesterday which showed significant 2v disease and cv surg was consulted -Pt had 2v cabg done today -manage post-operatively per cv surg (3) CAD: - s/p 2V cabg -manage per cv surg (4) GERD - Continue home meds (5) HTN - Hold home meds s/p cabg, defer to CV surg <Kevin Reyes - Last Filed: 11/02/17 14:29> Attending Addendum - Attending Addendum Date/Time: 11/02/17 1600 I personally evaluated the patient and discussed the management with Dr. Reyes I agree with the History, Examination, Assessment and Plan documented above with any addition or exceptions noted below. 62 yo male with CAD now s/p CABG POD#0 In ICU. Now on CPAP. Plan to extubate soon. Monitor in ICU. Following CT surg and Cards recs. ABrlarisaMD <Lisa Scherer - Last Filed: 11/03/17 08:30>
--- NOTE | 2017-11-02 14:44 | RAD ---
CHEST 1 VIEW: HISTORY: Post open heart surgery. COMPARISON: Chest radiograph 10/30/17. FINDINGS: Multiple leads project over the chest limiting evaluation. There is a central venous catheter with t ip projecting into the neck. Left thoracostomy drain is present as well as mediastinal drains. No large pneumothorax. New median sternotomy wires. IMPRESSION: 1. Expected postoperative changes aside from the right central venous catheter flipped into the neck . Recommend removal and readvancement. 2. Mild mediastinal widening may be the sequelae of hematoma. Spoke to steam shovel oiler at 2:11 p.m. [facility] [employer]
[2017-11-02] MEDS: Ketorolac Tromethamine 30 MG/ML VIAL IVP SCH ×3 (14:48→23:28)
[2017-11-02] MEDS: Fentanyl 100 MCG/2 ML VIAL SLOW IVP PRN ×3 (14:49→21:20)
[2017-11-02] MEDS ORDERED: Dextrose 5% in Water 1,000 ML IV PRN (14:56)
[2017-11-02] MEDS ORDERED: Dextrose 50% Abboject 50 ML SYRINGE SLOW IVP PRN (14:56)
[2017-11-02] MEDS: Insulin Regular 300 UNITS/3 ML VIAL SC PRN ×2 (14:59→17:38)
--- NOTE | 2017-11-02 15:33 | OP ---
DATE OF PROCEDURE: 11/02/2017 PROCEDURE PERFORMED: Coronary artery bypass grafting x3 with left internal mammary artery to the LAD and reverse greater saphenous vein grafts from the aorta to the diagonal and from the aorta to the P DA, right subclavian central line placement and 5 [place] right femoral arterial line placement. PREOPERATIVE DIAGNOSIS: Coronary artery disease with unstable angina. POSTOPERATIVE DIAGNOSIS: Coronary artery disease with unstable angina. SURGEON: Rah Valentin MD Principal Technical Writer: Dr. Rodriguez. ANESTHESIA: General endotracheal anesthesia. INDICATIONS: The patient is a 62-year-old man with conduction system disease and a positive family h istory of premature coronary artery disease. About a month or six weeks ago, he presented with about a year or year and a half of decreasing exercise tolerance and recent onset of angina in a crescendo pattern. He had stenting of high grade distal right coronary lesion and had good relief of his pain up until a few days prior to readmission recatheterization demonstrated progression of disease withi n his right coronary system as well as development of a new high grade lesion just proximal to his st ent. He is now taken to the operating room for surgical revascularization. FINDINGS: Pump time 98 minutes. Crossclamp time 50 minutes. Good quality PLACIDO and saphenous vein. The distal LAD were it was grafted was about a 1-1.5 mm vessel. The LAD on the epicardial surface wa s a diffusely diseased vessel. The diagonal proximally was about a 2 mm vessel, but extremely diseas ed where grafted more distally, it was about 1.5 mm. PDA was diffusely diseased were grafted was abo ut 1.5 mm. NARRATIVE REPORT: After informed consent was obtained, the patient was taken to the operating room a nd placed in supine position on the operating table. After induction of general anesthesia, the franck ent's vein in his left thigh was mapped ultrasonographically. His right chest was then prepped and d raped in sterile fashion and he was placed in Trendelenburg. A triple-lumen central line kit was use d to place a right subclavian central line by the Seldinger technique. All three ports aspirated and flushed easily. The line was secured to the skin with suture. The patient's torso groins and lower extremities were then prepped and draped in sterile fashion. Saphenous vein was harvested and was e xposed and the proximal left thigh and then harvested from the groin to just below the knee, utilizin g a counter incision in the skin bridge technique. The vein was prepared for use as a graft and the harvest sites were closed in layers of subcutaneous and subcuticular Vicryl. Median sternotomy was p erformed. The left PLACIDO was harvested as a pedicle from the level of the xiphoid to the level of the subclavian vein through an extrapleural exposure. One small rent near in the pleura near the diaphra gmatic surface was easily repaired, but in mobilizing the pleura from the hilum, there was a rent mad e in it along the hilar aspect near the apex. It was not amenable to repair because of how thin the pleura was at that point. The patient was heparinized. The mammary was ligated and divided distally . There was excellent flow through the mammary which was instilled intraluminally with papaverine so lution. The mammary bed was inspected for hemostasis. The PLACIDO retractor was placed with an Ankeney. The pericardium was opened and marsupialized. The aorta was palpated and was soft. The heart was fairly large, prompting preparation for cannulation beyond the pericardial reflection. A double conc entric pursestring of 2-0 Ethibond was placed just a little beyond the pericardial reflection and a s laura pursestring was placed in the right atrial appendage away from the palpable atrial lead of his pacemaker. Aortic and venous cannula were inserted and secured above the pursestrings. The plane be tween the aorta and the pulmonary artery was developed. Cardiopulmonary bypass was instituted and th e patient was systemically cooled. The heart was examined. The vessels to be bypassed were identifi ed. A longitudinal slit was made in the pericardium anterior to the left phrenic nerve through which the mammary pedicle could be passed and the aortic crossclamp was applied and cardioplegia was admin istered through and aortic root needle while cardioplegia was infusing. A 36 [place] left pleural dominik in was placed to drain the chest. It was secured to the skin with suture. When arrested been achiev ed, attention was turned to the PDA. It was exposed and opened fairly distally where it became a bet ter quality vessel. Reverse greater saphenous vein was anastomosed their end-to-side with running Pr olene suture and the anastomosis tested by flushing cold saline down the graft. Attention was then t urned to the diagonal which was opened fairly distally on the vessel where it became better quality. Saphenous vein was anastomosed to it in a similar fashion. A small amount of cardioplegia was admin istered to help distend the LAD as it was of fairly small vessel distally where it became good enough quality to open. The mammary was anastomosed there with running 7-0 Prolene, and the mammary pedicl e tacked to the epicardium. The aortic crossclamp was replaced with a partial occluding clamp. An a ortotomy was made in the ascending aorta with a scalpel and punch incorporating the root needle site for one of those aortotomies. The PDA graft was brought along the right side of the heart and anasto mosed to the more proximal aortotomy and the diagonal graft was brought along the left side of the he art and anastomosed to the more distal aortotomy. The partial occluding clamp was removed and the ve in grafts were deaired. The bulldogs were removed from them. There was bleeding just beyond the toe of the PDA proximal anastomosis where the suture had pulled through the aorta some. A mattress Prol nirmala suture with vein pledgets readily brought that under control without compromising the graft. Pos terior pericardial drain was brought out through a separate incision and secured suture. Right atria l and right ventricular temporary epicardial pacing wires were placed. The patient was then easily s eparated from cardiopulmonary bypass. The venous cannula was removed, but shortly after that could b e appreciated, there was bleeding coming from the heel, the diagonal graft proximal anastomosis. It could be appreciated that suture had pulled through the aorta some there and attempts at bringing gus t under control were problematic even with the use of vein pledgets. There was still some bleeding f rom the heel and it appeared that the caliber of the residual anastomosis may have been compromised. It was elected to reapply the partial occluding clamp and redo the anastomosis. It was taken down a nd the edges of the vein graft and the aortotomy were freshened with scissors. This required a fairl y generous spatulation in the vein graft. It was reanastomosed to the aortotomy and upon releasing t he partial occluding clamp, only one small area near the toe of the anastomosis required the vein ple dgeted repair stitch. The aortic cannula was removed and protamine was administered. The pursestrin gs were secured when hemostasis was adequate. An anterior mediastinal drain was placed. An attempt was made to close the pericardium which the patient did not tolerate well. Upon loosening that, the pressure in the aorta palpably felt reasonably good. The waveform in the radial arterial line was fl attened and seemed to have a lower pressure then corresponded with the palpable pressure in the aorta . A 5-[place] femoral arterial line was placed in the right groin and the systolic blood pressure wit h a line was roughly 20-30 mmHg higher than the radial was secured to the skin with suture. The medi astinal fat was tacked back together to cover up the aorta and the proximal portions of vein grafts a nd the inferior medial aspects of the pericardium were loosely tacked back to the diaphragmatic surfa ce to guard against retraction of the pericardium. The sternum was then reapproximated with #7 stain less steel wires. Fascia closed over the wires. Heavy Vicryl and subcutaneous tissue was irrigated and reapproximated and the skin was closed with Vicryl subcuticular stitch. The wounds were dressed. The patient was taken to the Intensive Care Unit in stable condition.
[2017-11-02] MEDS: Sodium Chloride 0.9% 1,000 ML IV SCH ×2 (16:11→21:34)
[2017-11-02] MEDS: Aspirin 325 MG TAB PO SCH (16:12)
[2017-11-02] MEDS: Famotidine/PF 20 mg/2ml Vial SLOW IVP SCH ×2 (16:12→22:43)
[2017-11-02 16:53] LABS: Actual Bicarbonate (HCO3a) 22.9 mEq/L (22-26); Base Excess (BEa) -2.2 mEq/L (0 (+/-) 2.5); CO2 Tension 40.4 mmHg (35.0-45.0); Calcium, Ionized 1.1 mmol/L (1.12-1.30); Hematocrit-ABG 33.6 % (42.0-52.0); Hemoglobin (Hb) 12.1 g/dL (14.0-18.0); Puncture Site ALINE; pH, Arterial 7.37 (7.35-7.45)
[2017-11-02 19:46] LABS: Hemoglobin 12.1 g/dL (14.0-18.0)
[2017-11-02 20:05] LABS: Potassium 4.1 mmol/L (3.5-5.1)
[2017-11-02] MEDS: Atorvastatin Calcium 20 MG TAB PO SCH (22:08)
[2017-11-02] MEDS ORDERED: Famotidine 20 MG TAB PO SCH (22:15)
--- NOTE | 2017-11-02 23:50 | EKG ---
Test Reason : POST CABG Blood Pressure : / mmHG Vent. Rate : 074 BPM Atrial Rate : 074 BPM P-R Int : 168 ms QRS Dur : 092 ms QT Int : 398 ms P-R-T Axes : 071 020 -04 degrees QTc Int : 441 ms Normal sinus rhythm Normal ECG When compared with ECG of 01-NOV-2017 08:39, Sinus rhythm has replaced Electronic atrial pacemaker ST now depressed in Inferior leads T wave inversion now evident in Inferior leads Confirmed by ARGENIS COLEMAN, DR. Garcia ([id number]) on 11/02/2017 11:50:40 PM Referred By: SNEHA Confirmed By:DR. Jose MORE MD
[2017-11-03] MEDS: oxyCODONE/Acetaminophen 5 mg/325 mg Tablet PO PRN ×5 (00:02→19:28)
[2017-11-03] MEDS: Fentanyl 100 MCG/2 ML VIAL SLOW IVP PRN ×4 (02:52→22:19)
[2017-11-03 04:57] LABS: #Lymphocytes 2.2 thou/uL (1.20-3.40); #Monocytes 0.9 thou/uL (0.11-0.59); #Neutrophils 6.4 thou/uL (1.40-6.50); %Basophils 0.2 % (0.0-1.0); %Eosinophils 0.4 % (0.0-10.0); %Lymphocytes 22.6 % (21.0-51.0); %Monocytes 9.6 % (0.0-10.0); %Neutrophils 67.1 % (42.0-75.0); Hemoglobin 11.3 g/dL (14.0-18.0); Mean Corpuscular HGB CONC 34.7 g/dL (32.0-36.0); Mean Corpuscular Hemoglobin 32.1 pg (27.0-31.0); Mean Corpuscular Volume 92.5 fl (80.0-94.0); Platelet Count 127 thou/uL (130-400); RBC Distribution Width 12.1 % (11.5-14.5); Red Blood Cell (RBC) Count 3.51 mill/uL (4.70-6.10); White Blood Cell (WBC) Count 9.6 thou/uL (4.8-10.8)
[2017-11-03 05:14] LABS: Anion Gap 10 mmol/L (10-20); BUN (Urea Nitrogen) 14 mg/dL (8.4-25.7); Calc. Creatinine Clearance 112 mL/min (70-130); Calcium 8.1 mg/dL (7.8-10.44); Carbon Dioxide 27 mmol/L (23-31); Chloride 110 mmol/L (98-107); Estimated GFR-MDRD 72; Glucose 97 mg/dL (80-115); Potassium 3.9 mmol/L (3.5-5.1); Sodium 143 mmol/L (136-145)
[2017-11-03] MEDS: Ketorolac Tromethamine 30 MG/ML VIAL IVP SCH (05:41)
--- NOTE | 2017-11-03 08:16 | PDOC.FM ---
- Subjective Subjective: Pt had one episode of syncope when attempting to sit at bedside. Pt currently denies pain. No NVDC. - Objective Vital Signs & Weight: Vital Signs (12 hours) Temp Pulse Resp Pulse Ox 11/03/17 07:47 98.5 F 91 16 95 11/03/17 07:23 95 11/03/17 05:00 98.6 F 11/03/17 00:00 98.4 F 11/02/17 23:00 98.4 F Weight Weight 108.136 kg Most Recent Monitor Data Heart Rate from ECG 91 NIBP 98/69 NIBP BP-Mean 85 Respiration from ECG 14 SpO2 97 I&O: 11/02/17 11/03/17 11/04/17 06:59 06:59 06:59 Intake Total 600 2328 0 Output Total 550 1700 140 Balance 50 628 -140 Result Diagrams: 11/03/17 04:00 11/03/17 04:00 <Kevin Reyes - Last Filed: 11/03/17 08:50> - Objective Vital Signs & Weight: Vital Signs (12 hours) Temp Pulse Resp Pulse Ox 11/03/17 07:47 98.5 F 91 16 95 11/03/17 07:23 95 11/03/17 05:00 98.6 F Weight Weight 108.136 kg Most Recent Monitor Data Heart Rate from ECG 91 NIBP 108/66 NIBP BP-Mean 77 Respiration from ECG 25 SpO2 97 I&O: 11/02/17 11/03/17 11/04/17 06:59 06:59 06:59 Intake Total 600 2328 740 Output Total 550 1700 300 Balance 50 628 440 Result Diagrams: 11/03/17 04:00 11/03/17 04:00 <Alex Ramos - Last Filed: 11/03/17 12:06> Phys Exam - Physical Examination Constitutional: NAD HEENT: PERRLA, moist MMs, sclera anicteric Neck: no nodes, no JVD course breath sounds throughout, chest tubes in place Cardiovascular: RRR, no significant murmur Gastrointestinal: soft, non-tender, no distention, positive bowel sounds Musculoskeletal: no edema, pulses present Neurological: non-focal, moves all 4 limbs Psychiatric: normal affect Skin: cap refill <2 seconds <Kevin Reyes - Last Filed: 11/03/17 08:50> Dx/Plan (1) S/P CABG (coronary artery bypass graft) Code(s): Z95.1 - PRESENCE OF AORTOCORONARY BYPASS GRAFT Status: Acute (2) Unstable angina Status: Acute (3) CAD (coronary artery disease) Code(s): I25.10 - ATHSCL HEART DISEASE OF [place] CORONARY ARTERY W/O ANG PCTRS Status: Chronic (4) Dyslipidemia Code(s): E78.5 - HYPERLIPIDEMIA, UNSPECIFIED Status: Chronic (5) Hypertension Code(s): I10 - ESSENTIAL (PRIMARY) HYPERTENSION Status: Chronic - Plan Plan: (1) S/P CABG: Manage post-operatively per CV surg -extubated yesterday, chest tubes in place. Resting comfrotably in bed, equal rise/fall of chest no respiratory distress. -CV surg consulted, appreciate recs -[id number] -near syncopal episode when attempting to sit bedside, pacer increased to 90bpm 2)Unstable Angina: - Hx of recent cath and JADEN placement about one month ago - Symptoms occurring more frequently and now at rest and pt had witnessed active episode of CP while at bedside, relieved by SL nitro - Pt was taken for cardiac cath yesterday which showed significant 2v disease and cv surg was consulted - Pt had 2v cabg done yesterday, post-op day 1. - manage post-operatively per cv surg (3) CAD: - s/p 2V cabg -manage per cv surg (4) GERD - Continue home meds (5) HTN - Hold home meds s/p cabg, defer to CV surg (6) HLD: Statin qhs <Kevin Reyes - Last Filed: 11/03/17 08:50> Attending Addendum - Attending Addendum Date/Time: 11/03/17 1205 I personally evaluated the patient and discussed the management with Dr. Reyes POD #1 s/p 3V CABG management per Cardiology and CVS. <Alex Ramos - Last Filed: 11/03/17 12:06>
[2017-11-03] MEDS: Sodium Chloride 0.9% 1,000 ML IV SCH (08:55)
[2017-11-03] MEDS: Famotidine 20 MG TAB PO SCH ×2 (08:55→19:28)
[2017-11-03] MEDS: Aspirin 325 MG TAB PO SCH (08:55)
--- NOTE | 2017-11-03 08:59 | RAD ---
PORTABLE AP CHEST XRAY: DATE: 11/03/17. HISTORY: Post open heart surgery. COMPARISON: 11/03/17. FINDINGS: The right subclavian vascular congestion remains in place which courses superiorly to overlie the rig ht neck, the tip of which is not imaged. Endotracheal tube has been removed. Left-sided thoracostom y tube remains in place and unchanged in position. Multiple filbert grower leads overlie the chest. Dual-lead left subclavian cardiac pacemaking device is in place. Median sternotomy wires are prese nt. Cardiac silhouette is magnified by projection. No pneumothorax or pleural effusion is identifie d. IMPRESSION: Interval removal of the endotracheal tube. The chest is otherwise stable. POS: ISAAC
--- NOTE | 2017-11-03 17:14 | PDOC.CTH ---
Cardiology Progress Note - Subjective P twith an episode of hypotension today in addition to HR of 60BPM. Upon my arrival, temporary pacing wires were hooked up to a tempoary pacer and increased to 90BPM. This did occur after large amount of fluid noted from CT. Pt appears to be resting comfortably. After returning in the afternoon, pt HR stable in the 70's and no longer capturing at lower voltage. I increase voltage of the a lead and pt captured at 5 - Objective Vital Signs Temp Pulse Resp Pulse Ox 11/03/17 16:00 98.8 F 11/03/17 12:00 98.6 F 11/03/17 07:47 98.5 F 91 16 95 11/03/17 07:23 95 Weight 238 lb 6.4 oz 11/02/17 11/03/17 11/04/17 06:59 06:59 06:59 Intake Total 600 2328 980 Output Total 550 1700 805 Balance 50 628 175 - Physical Examination General/Neuro: alert & oriented x3, NAD Neck: carotid US brisk, no JVD present Lungs: CTA, unlabored respirations, other: Heart: PMI normal, RRR, other: Abdomen: no HSM, NT/ND, soft, other: - Labs Result Diagrams: 11/03/17 04:00 11/03/17 04:00 Troponin/CKMB CK-MB (CK-2) 1.3 ng/mL (0-6.6) 10/30/17 17:35 Troponin I 0.076 ng/mL (< 0.028) H 10/30/17 17:35 - Assessment/Plan 1. Severe CAD 2. S/p CABG 3. Hypotension Symptoms have improved. Pacer settings noted at 60BPM. Pt currently above lower rate limit with stable BP. Hold BB for now given BP of 100 systolic. Add statin. IS and up in chair
[2017-11-03] MEDS: Atorvastatin Calcium 20 MG TAB PO SCH (19:27)
[2017-11-04] MEDS: Sodium Chloride 0.9% 1,000 ML IV SCH (00:32)
[2017-11-04] MEDS: Fentanyl 100 MCG/2 ML VIAL SLOW IVP PRN (02:12)
[2017-11-04 03:44] LABS: #Eosinphils 0.1 thou/uL (0.0-0.7); #Lymphocytes 1.8 thou/uL (1.20-3.40); #Monocytes 0.8 thou/uL (0.11-0.59); #Neutrophils 7.2 thou/uL (1.40-6.50); %Basophils 0.2 % (0.0-1.0); %Eosinophils 0.9 % (0.0-10.0); %Lymphocytes 18.4 % (21.0-51.0); %Monocytes 8.3 % (0.0-10.0); %Neutrophils 72.2 % (42.0-75.0); Hemoglobin 9.7 g/dL (14.0-18.0); Mean Corpuscular HGB CONC 34.2 g/dL (32.0-36.0); Mean Corpuscular Hemoglobin 31.6 pg (27.0-31.0); Mean Corpuscular Volume 92.5 fl (80.0-94.0); Mean Platelet Volume 7.5 fL (7.4-10.4); Platelet Count 106 thou/uL (130-400); RBC Distribution Width 12.2 % (11.5-14.5); Red Blood Cell (RBC) Count 3.06 mill/uL (4.70-6.10)
[2017-11-04 04:04] LABS: Anion Gap 8 mmol/L (10-20); BUN (Urea Nitrogen) 12 mg/dL (8.4-25.7); Calc. Creatinine Clearance 146 mL/min (70-130); Calcium 8.4 mg/dL (7.8-10.44); Carbon Dioxide 27 mmol/L (23-31); Chloride 108 mmol/L (98-107); Estimated GFR-MDRD Greater than 90; Glucose 103 mg/dL (80-115); Potassium 3.9 mmol/L (3.5-5.1); Sodium 139 mmol/L (136-145)
[2017-11-04] MEDS: oxyCODONE/Acetaminophen 5 mg/325 mg Tablet PO PRN ×4 (05:08→18:13)
[2017-11-04] MEDS ORDERED: Mag-Al 1200 mg/1200 mg/30 ML UDCUP PO PRN (07:00)
[2017-11-04] MEDS ORDERED: Bisacodyl 10 MG SUPP PR PRN (07:00)
[2017-11-04] MEDS ORDERED: Mineral Oil ENEMA PR PRN (07:00)
[2017-11-04] MEDS ORDERED: Artificial Tears 18 DROP/0.9 ML EA EYE PRN (07:00)
[2017-11-04] MEDS ORDERED: Nitroglycerin 0.4 MG TAB (25 Tab Bottle) SL PRN (07:00)
[2017-11-04] MEDS ORDERED: Guaifenesin DM 100-10/5 ML UDCUP PO PRN (07:00)
[2017-11-04] MEDS ORDERED: Zolpidem Tartrate 5 MG TAB PO PRN (07:00)
[2017-11-04] MEDS ORDERED: Bisacodyl 5 MG TAB PO PRN (07:00)
[2017-11-04] MEDS: Aspirin 325 mg Enteric Coated Tablet PO SCH (08:41)
[2017-11-04] MEDS: Furosemide 40 MG TAB PO SCH (08:41)
[2017-11-04] MEDS: Lisinopril 5 MG TAB PO SCH (08:41)
[2017-11-04] MEDS: Famotidine 20 MG TAB PO SCH ×2 (08:41→20:28)
--- NOTE | 2017-11-04 09:12 | PDOC.FM ---
- Subjective Subjective: No acute evetns overnight. Pt reports he has persistant sternotomy pain, improved with pain medications. Otherwise, no syncopal episodes, nvdc, sob, fever and chills. - Objective Vital Signs & Weight: Vital Signs (12 hours) Temp Pulse Pulse Ox 11/04/17 08:41 75 11/04/17 06:00 99.1 F 11/04/17 04:00 95 11/04/17 03:00 99.2 F 11/04/17 00:00 98.2 F 95 11/03/17 22:00 98 F Weight Weight 108.136 kg Most Recent Monitor Data Heart Rate from ECG 70 NIBP 114/58 NIBP BP-Mean 68 Respiration from ECG 25 SpO2 97 I&O: 11/03/17 11/04/17 11/05/17 06:59 06:59 06:59 Intake Total 2327 2027 Output Total 1700 1732 75 Balance 628 296 -75 Result Diagrams: 11/04/17 03:30 11/04/17 03:30 <Kevin Reyes - Last Filed: 11/04/17 09:10> - Objective Vital Signs & Weight: Vital Signs (12 hours) Temp Pulse Resp BP Pulse Ox 11/04/17 10:50 97.9 F 68 16 123/69 96 11/04/17 08:41 75 11/04/17 08:00 98.9 F 75 16 93 L 11/04/17 06:00 99.1 F 11/04/17 04:00 95 11/04/17 03:00 99.2 F Weight Weight 108.136 kg Most Recent Monitor Data Heart Rate from ECG 70 NIBP 114/58 NIBP BP-Mean 68 Respiration from ECG 25 SpO2 97 I&O: 11/03/17 11/04/17 11/05/17 06:59 06:59 06:59 Intake Total 2327 2027 Output Total 1700 1732 475 Balance 628 296 -475 Result Diagrams: 11/04/17 03:30 11/04/17 03:30 <Alex Ramos - Last Filed: 11/04/17 12:53> Phys Exam - Physical Examination Constitutional: NAD HEENT: PERRLA, moist MMs, sclera anicteric Neck: no nodes, no JVD Respiratory: no wheezing, no rales coarse breath sounds throughout Cardiovascular: RRR, no significant murmur, no rub Gastrointestinal: soft, non-tender, no distention, positive bowel sounds Musculoskeletal: no edema, pulses present Neurological: non-focal, moves all 4 limbs Skin: normal turgor, cap refill <2 seconds <Kevin Reyes - Last Filed: 11/04/17 09:10> Dx/Plan (1) S/P CABG (coronary artery bypass graft) Code(s): Z95.1 - PRESENCE OF AORTOCORONARY BYPASS GRAFT Status: Acute (2) Unstable angina Status: Acute (3) CAD (coronary artery disease) Code(s): I25.10 - ATHSCL HEART DISEASE OF [place] CORONARY ARTERY W/O ANG PCTRS Status: Chronic (4) Dyslipidemia Code(s): E78.5 - HYPERLIPIDEMIA, UNSPECIFIED Status: Chronic (5) Hypertension Code(s): I10 - ESSENTIAL (PRIMARY) HYPERTENSION Status: Chronic - Plan Plan: (1) S/P CABG: Manage post-operatively per CV surg -post op day 2. -off pressors, chest tubes in place, a-lines removed -bp and HR stable -post op management per cv surg 2)Unstable Angina: - Hx of recent cath and JADEN placement about one month ago - pos CABG X3 post op day 2 (3) CAD: - s/p 2V cabg -manage per cv surg (4) GERD - Continue home meds (5) HTN - Hold home meds s/p cabg, defer to CV surg (6) HLD: Statin qhs <Kevin Reyes - Last Filed: 11/04/17 09:10> Attending Addendum - Attending Addendum Date/Time: 11/04/17 1246 I personally evaluated the patient and discussed the management with Dr. Reyes I agree with the History, Examination, Assessment and Plan documented above with any addition or exceptions noted below. Stepped down from CCU to telemetry continues to do well post-operatively. <Alex Ramos - Last Filed: 11/04/17 12:53>
--- NOTE | 2017-11-04 09:39 | RAD ---
PORTABLE AP CHEST RADIOGRAPH: Date: 11-04-17 Comparison: 11-03-17 History: Evaluate chest following open heart surgery. FINDINGS: Stable malpositioned right sided vascular catheter noted, distal tip extending into the region of the neck. Midline sternotomy wires are present. Lateral left sided chest tube. Right lung appears clear. Increased density noted in the medial left b ase suggesting volume loss or infiltrate, stable. Stable left sided transvenous pacing device. IMPRESSION: Post-operative changes as detailed above. POS: AGUSTIN
--- NOTE | 2017-11-04 10:28 | PDOC.CTH ---
Cardiology Progress Note - Subjective No complaints. BP stabilized. - Objective Vital Signs Temp Pulse Resp Pulse Ox 11/04/17 08:41 75 11/04/17 08:00 98.9 F 75 16 93 L 11/04/17 06:00 99.1 F 11/04/17 04:00 95 11/04/17 03:00 99.2 F 11/04/17 00:00 98.2 F 95 Weight 238 lb 6.4 oz 11/03/17 11/04/17 11/05/17 06:59 06:59 06:59 Intake Total 2328 2028 Output Total 1700 1732 75 Balance 628 296 -75 - Physical Examination General/Neuro: alert & oriented x3, NAD Neck: carotid US brisk, no JVD present Lungs: CTA, unlabored respirations Heart: RRR Abdomen: no HSM, NT/ND Extremities: + femoral B - Labs Result Diagrams: 11/04/17 03:30 11/04/17 03:30 Troponin/CKMB CK-MB (CK-2) 1.3 ng/mL (0-6.6) 10/30/17 17:35 Troponin I 0.076 ng/mL (< 0.028) H 10/30/17 17:35 - Assessment/Plan 1. Severe CAD 2. S/p CABG 3. Hypotension 4. s/p pacer BP improved add BB On statin Ambulate and IS interrogate pacer
[2017-11-04 14:14] LABS: Actual Bicarbonate (HCO3a) 22.8 mEq/L (22-26); Base Excess (BEa) -2.6 mEq/L (0 (+/-) 2.5); CO2 Tension 41.8 mmHg (35.0-45.0); Hematocrit-ABG 44.9 % (42.0-52.0); Hemoglobin (Hb) 15.1 g/dL (14.0-18.0); O2 Tension (PaO2) 455.6 mmHg (80.0-100.0); pH, Arterial 7.36 (7.35-7.45)
[2017-11-04 14:15] LABS: Actual Bicarbonate (HCO3a) 22.3 mEq/L (22-26); Base Excess (BEa) -3.4 mEq/L (0 (+/-) 2.5); CO2 Tension 42.7 mmHg (35.0-45.0); pH, Arterial 7.34 (7.35-7.45)
[2017-11-04 14:15] LABS: Analyzer IN Cardio OR; Puncture Site ALINE
[2017-11-04 14:16] LABS: Analyzer IN Cardio OR; Calcium, Ionized 1.2 mmol/L (1.12-1.30); Hematocrit-ABG 43.6 % (42.0-52.0); Hemoglobin (Hb) 14.8 g/dL (14.0-18.0); Puncture Site ALINE
[2017-11-04 14:17] LABS: Analyzer IN Cardio OR; Base Excess (BEa) -1.3 mEq/L (0 (+/-) 2.5); CO2 Tension 42.3 mmHg (35.0-45.0); Hematocrit-ABG 30.2 % (42.0-52.0); Hemoglobin (Hb) 10.4 g/dL (14.0-18.0); O2 Tension (PaO2) 382.3 mmHg (80.0-100.0); Puncture Site ALINE; pH, Arterial 7.37 (7.35-7.45)
[2017-11-04 14:19] LABS: Analyzer IN Cardio OR; pH (venous) 7.34 (7.35-7.45)
[2017-11-04 14:20] LABS: Actual Bicarbonate (HCO3v) 25 mEq/L (22-26); Base Excess -0.8 mEq/L (0 (+/- 2.5))
[2017-11-04 14:24] LABS: Hematocrit-VBG 29.9 % (39-50); Hemoglobin (Hb) 10.1 g/dL (13.1-17.2); Sodium 138.1 mmol/L (133-146)
[2017-11-04 14:25] LABS: pH, Arterial 7.36 (7.35-7.45)
[2017-11-04 14:25] LABS: Chloride (ABG LAB) 103 mmol/L (98-106); Potassium - ABG Lab 5.8 mmol/L (3.70-5.30)
[2017-11-04 14:26] LABS: Actual Bicarbonate (HCO3a) 23.5 mEq/L (22-26); Analyzer IN Cardio OR; Hematocrit-ABG 29.3 % (42.0-52.0); Hemoglobin (Hb) 10.4 g/dL (14.0-18.0); Puncture Site ALINE
[2017-11-04 14:26] LABS: CO2 Tension 46.3 mmHg (35.0-45.0); pH, Arterial 7.33 (7.35-7.45)
[2017-11-04 14:27] LABS: Actual Bicarbonate (HCO3a) 23.5 mEq/L (22-26); Base Excess (BEa) -2.8 mEq/L (0 (+/-) 2.5); CO2 Tension 47.7 mmHg (35.0-45.0); O2 Tension (PaO2) 186.6 mmHg (80.0-100.0); pH, Arterial 7.31 (7.35-7.45)
[2017-11-04 14:27] LABS: Actual Bicarbonate (HCO3a) 24.1 mEq/L (22-26); Analyzer IN Cardio OR; Base Excess (BEa) -1.8 mEq/L (0 (+/-) 2.5); Calcium, Ionized 1.2 mmol/L (1.12-1.30); Hematocrit-ABG 25.4 % (42.0-52.0); Hemoglobin (Hb) 9.2 g/dL (14.0-18.0); O2 Tension (PaO2) 145.1 mmHg (80.0-100.0); Puncture Site ALINE
[2017-11-04 14:28] LABS: Actual Bicarbonate (HCO3a) 23.5 mEq/L (22-26); Base Excess (BEa) -2.6 mEq/L (0 (+/-) 2.5); CO2 Tension 46.2 mmHg (35.0-45.0); Hematocrit-ABG 32.4 % (42.0-52.0); Hemoglobin (Hb) 11.9 g/dL (14.0-18.0); O2 Tension (PaO2) 180.3 mmHg (80.0-100.0); pH, Arterial 7.33 (7.35-7.45)
[2017-11-04 14:28] LABS: Analyzer IN Cardio OR; Calcium, Ionized 1.4 mmol/L (1.12-1.30); Hematocrit-ABG 24.7 % (42.0-52.0); Hemoglobin (Hb) 9.2 g/dL (14.0-18.0); Puncture Site ALINE
[2017-11-04 14:29] LABS: Analyzer IN Cardio OR; Calcium, Ionized 1.2 mmol/L (1.12-1.30); Puncture Site ALINE
[2017-11-04] MEDS: Atorvastatin Calcium 20 MG TAB PO SCH (20:28)
[2017-11-04] MEDS: Metoprolol Tartrate 25 MG TAB PO SCH (20:28)
[2017-11-05] MEDS: oxyCODONE/Acetaminophen 5 mg/325 mg Tablet PO PRN ×4 (02:27→20:19)
--- NOTE | 2017-11-05 07:51 | PDOC.CTH ---
Cardiology Progress Note - Subjective Pt somnolent. No current complaints. CT still in place. - Objective Vital Signs Temp Pulse Resp BP BP Pulse Ox 11/05/17 04:00 98.2 F 62 16 118/74 92 L 11/05/17 00:00 98.4 F 60 16 107/64 97 11/04/17 20:00 98.1 F 66 20 115/65 96 Weight 238 lb 6.4 oz 11/04/17 11/05/17 11/06/17 06:59 06:59 06:59 Intake Total 8 400 Output Total 1732 1215 Balance 296 -815 - Physical Examination General/Neuro: alert & oriented x3, NAD Neck: carotid US brisk, no JVD present Lungs: CTA, unlabored respirations Heart: RRR Abdomen: no HSM, NT/ND, soft Extremities: + femoral B - Labs Result Diagrams: 11/04/17 03:30 11/04/17 03:30 Troponin/CKMB CK-MB (CK-2) 1.3 ng/mL (0-6.6) 10/30/17 17:35 Troponin I 0.076 ng/mL (< 0.028) H 10/30/17 17:35 - Assessment/Plan 1. Severe CAD 2. S/p CABG 3. Hypotension 4. s/p pacer Pt on BB, ACEI ASA and statin hypotension resolved. Pacer interrogated and WNL. Episode of VT present, non-sustained on 11/02 asked about home health. Can certain be ordered but d/t finaicl constraints, opted against it. also felt with recent changes in health she would like him qualified for disability. I stated they need to set up a visit with their provider to discuss or find someone who can handle disability claims
--- NOTE | 2017-11-05 08:18 | RAD ---
CHEST 1 VIEW: HISTORY: Heart surgery. Followup. COMPARISON: 11/04/17. FINDINGS: Cardiac silhouette is magnified and upper limits of normal in size. Mediastinum midline with postope rative changes, aortic calcification, and a dual-lead left subclavian cardiac electronic device. Lef t thoracostomy tube remains in place. No significant pneumothorax. Atelectasis at the left base is not significantly changed. radiation monitor leads overlie the chest. Right internal jugular central venous catheter is no longer visible. IMPRESSION: Interval removal right central venous catheter. Otherwise, stable postoperative appearance of the ch est. POS: [facility]
--- NOTE | 2017-11-05 09:25 | PDOC.FM ---
- Subjective Subjective: No acute events overnight. Pt reports some confusion when waking in the AM and some constipation. Takes miralax daily at home. Otherwise, no complaints. Hypotension/pre-syncopal episodes have resolved. Paced rhythm on tele. - Objective Vital Signs & Weight: Vital Signs (12 hours) Temp Pulse Resp BP BP Pulse Ox 11/05/17 04:00 98.2 F 62 16 118/74 92 L 11/05/17 00:00 98.4 F 60 16 107/64 97 Weight Weight 108.136 kg Most Recent Monitor Data Heart Rate from ECG 70 NIBP 114/58 NIBP BP-Mean 68 Respiration from ECG 25 SpO2 97 I&O: 11/04/17 11/05/17 11/06/17 06:59 06:59 06:59 Intake Total 2027 400 Output Total 1732 1215 Balance 296 815 Result Diagrams: 11/04/17 03:30 11/04/17 03:30 <Kevin Reyes - Last Filed: 11/05/17 09:23> - Objective Vital Signs & Weight: Vital Signs (12 hours) Temp Pulse Resp BP BP BP Pulse Ox 11/05/17 10:37 60 131/77 11/05/17 08:00 97.2 F L 60 18 131/77 98 11/05/17 04:00 98.2 F 62 16 118/74 92 L 11/05/17 00:00 98.4 F 60 16 107/64 97 Weight Weight 108.136 kg Most Recent Monitor Data Heart Rate from ECG 70 NIBP 114/58 NIBP BP-Mean 68 Respiration from ECG 25 SpO2 97 I&O: 11/04/17 11/05/17 11/06/17 06:59 06:59 06:59 Intake Total 2027 400 Output Total 1732 1215 Balance 296 -815 Result Diagrams: 11/04/17 03:30 11/04/17 03:30 <Alex Ramos - Last Filed: 11/05/17 11:19> Phys Exam - Physical Examination Constitutional: NAD HEENT: PERRLA, sclera anicteric Neck: no nodes, no JVD Respiratory: no wheezing, no rales coarse breath sounds throughout, chest tubes in place Cardiovascular: RRR, no significant murmur, no rub Gastrointestinal: soft, non-tender, no distention, positive bowel sounds Musculoskeletal: no edema, pulses present Neurological: non-focal, moves all 4 limbs Skin: normal turgor, cap refill <2 seconds <Kevin Reyes - Last Filed: 11/05/17 09:23> Dx/Plan (1) S/P CABG (coronary artery bypass graft) Code(s): Z95.1 - PRESENCE OF AORTOCORONARY BYPASS GRAFT Status: Acute (2) Unstable angina Status: Acute (3) CAD (coronary artery disease) Code(s): I25.10 - ATHSCL HEART DISEASE OF [place] CORONARY ARTERY W/O ANG PCTRS Status: Chronic (4) Dyslipidemia Code(s): E78.5 - HYPERLIPIDEMIA, UNSPECIFIED Status: Chronic (5) Hypertension Code(s): I10 - ESSENTIAL (PRIMARY) HYPERTENSION Status: Chronic - Plan Plan: (1) S/P CABG: Manage post-operatively per CV surg -post op day 2. -off pressors, chest tubes in place, a-lines removed -bp and HR stable -post op management per cv surg, cont post op management per cv surg -colace catie bid 2)Unstable Angina: - Hx of recent cath and JADEN placement about one month ago - pos CABG X3 post op day 3 (3) CAD: - s/p 2V cabg -manage per cv surg (4) GERD - Continue home meds (5) HTN - asa, statin, BB and jerry-i (6) HLD: Statin qhs <Kevin Reyes - Last Filed: 11/05/17 09:23> Attending Addendum - Attending Addendum Date/Time: 11/05/17 1118 I personally evaluated the patient and discussed the management with Dr. Reyes I agree with the History, Examination, Assessment and Plan documented above with any addition or exceptions noted below. <Alex Ramos - Last Filed: 11/05/17 11:19>
[2017-11-05] MEDS: Furosemide 40 MG TAB PO SCH (10:36)
[2017-11-05] MEDS: Metoprolol Tartrate 25 MG TAB PO SCH ×2 (10:36→20:22)
[2017-11-05] MEDS: Famotidine 20 MG TAB PO SCH ×2 (10:36→20:21)
[2017-11-05] MEDS: Lisinopril 5 MG TAB PO SCH (10:37)
[2017-11-05] MEDS: Aspirin 325 mg Enteric Coated Tablet PO SCH (10:37)
[2017-11-05] MEDS: diphenhydrAMINE 25 MG CAP PO PRN (12:56)
[2017-11-05] MEDS: Atorvastatin Calcium 20 MG TAB PO SCH (20:21)
[2017-11-06] MEDS: oxyCODONE/Acetaminophen 5 mg/325 mg Tablet PO PRN ×3 (05:00→19:59)
--- NOTE | 2017-11-06 06:14 | PDOC.FM ---
- Subjective Subjective: Pt reports doing well this morning. Denies any acute events overnight. Denies any chest pain. Reports having some mild pain around chest tube insertion site. Says he thinks he worked a little hard. Reports current pain management regimen is working. Getting adequate relief. Denies any SOB. No other questions or concerns at this time - Objective MAR Reviewed: Yes Vital Signs & Weight: Vital Signs (12 hours) Temp Pulse Resp BP Pulse Ox 11/06/17 04:00 98.0 F 62 18 130/88 96 11/06/17 00:00 97.4 F L 62 18 120/78 97 11/05/17 20:00 99.3 F 63 20 120/69 98 Weight Weight 107.728 kg Most Recent Monitor Data Heart Rate from ECG 70 NIBP 114/58 NIBP BP-Mean 68 Respiration from ECG 25 SpO2 97 I&O: 11/04/17 11/05/17 11/06/17 06:59 06:59 06:59 Intake Total 2027 400 1860 Output Total 1732 1215 1200 Balance 296 -815 660 Result Diagrams: 11/04/17 03:30 11/04/17 03:30 Radiology Reviewed by me: Yes <Gonzalo Hancock - Last Filed: 11/06/17 07:15> - Objective Vital Signs & Weight: Vital Signs (12 hours) Temp Pulse Resp BP Pulse Ox 11/06/17 04:00 98.0 F 62 18 130/88 96 11/06/17 00:00 97.4 F L 62 18 120/78 97 Weight Weight 107.728 kg Most Recent Monitor Data Heart Rate from ECG 70 NIBP 114/58 NIBP BP-Mean 68 Respiration from ECG 25 SpO2 97 I&O: 11/05/17 11/06/17 11/07/17 06:59 06:59 06:59 Intake Total 400 1860 Output Total 1215 1410 Balance -815 450 Result Diagrams: 11/04/17 03:30 11/04/17 03:30 <Alex Ramos - Last Filed: 11/06/17 09:40> Phys Exam - Physical Examination Constitutional: NAD HEENT: PERRLA, moist MMs Respiratory: no wheezing, no rhonchi some mild rales in bases bilaterally Cardiovascular: RRR, no significant murmur, no rub Gastrointestinal: soft, non-tender, no distention, positive bowel sounds Musculoskeletal: no edema, pulses present Neurological: non-focal, normal sensation Lymphatic: no nodes Psychiatric: normal affect, A&O x 3 Skin: no rash, normal turgor <Gonzalo Hancock - Last Filed: 11/06/17 07:15> Dx/Plan (1) S/P CABG (coronary artery bypass graft) Code(s): Z95.1 - PRESENCE OF AORTOCORONARY BYPASS GRAFT Status: Acute (2) Acute coronary syndrome Code(s): I24.9 - ACUTE ISCHEMIC HEART DISEASE, UNSPECIFIED Status: Acute (3) CAD (coronary artery disease) Code(s): I25.10 - ATHSCL HEART DISEASE OF [place] CORONARY ARTERY W/O ANG PCTRS Status: Chronic (4) Dyslipidemia Code(s): E78.5 - HYPERLIPIDEMIA, UNSPECIFIED Status: Chronic (5) Hypertension Code(s): I10 - ESSENTIAL (PRIMARY) HYPERTENSION Status: Chronic - Plan Plan: (1) S/P CABG: Manage post-operatively per CV surg -post op day 3. -off pressors, chest tubes in place, a-lines removed -bp and HR stable -post op management per cv surg, cont post op management per cv surg -colace catie bid -Follow CV surg, Cardiology recs 2)Unstable Angina: - Hx of recent cath and JADEN placement about one month ago - pos CABG X3 post op day 3 (3) CAD: - s/p 2V cabg -manage per cv surg (4) GERD - Continue home meds (5) HTN - asa, statin, BB and jerry-i. Blood pressure stable. No need in adjusmtnet (6) HLD: Statin qhs <Gonzalo Hancock - Last Filed: 11/06/17 07:15> Attending Addendum - Attending Addendum Date/Time: 11/06/17 8839 I personally evaluated the patient and discussed the management with Dr. Hancock I agree with the History, Examination, Assessment and Plan documented above with any addition or exceptions noted below. <Alex Ramos - Last Filed: 11/06/17 09:40>
[2017-11-06] MEDS ORDERED: Melatonin 3 MG TAB PO PRN (09:55)
[2017-11-06] MEDS: Metoprolol Tartrate 25 MG TAB PO SCH ×2 (11:18→20:23)
[2017-11-06] MEDS: Famotidine 20 MG TAB PO SCH ×2 (11:18→20:23)
[2017-11-06] MEDS: Lisinopril 5 MG TAB PO SCH (11:19)
[2017-11-06] MEDS: Aspirin 325 mg Enteric Coated Tablet PO SCH (11:19)
[2017-11-06] MEDS: Furosemide 40 MG TAB PO SCH (11:35)
[2017-11-06] MEDS: diphenhydrAMINE 25 MG CAP PO PRN (18:08)
[2017-11-06] MEDS: Atorvastatin Calcium 20 MG TAB PO SCH (20:23)
--- NOTE | 2017-11-06 22:50 | EKG ---
Test Reason : Blood Pressure : / mmHG Vent. Rate : 066 BPM Atrial Rate : 066 BPM P-R Int : 168 ms QRS Dur : 102 ms QT Int : 412 ms P-R-T Axes : 000 011 069 degrees QTc Int : 431 ms Electronic atrial pacemaker Confirmed by DANNY AGUIAR MD ([id number]), assignment editor JASWANT HERRERA ([id number]) on 11/06/2017 10:50:18 PM Referred By: Confirmed By:DANNY AGUIAR MD
[2017-11-07] MEDS: oxyCODONE/Acetaminophen 5 mg/325 mg Tablet PO PRN ×4 (05:33→22:31)
--- NOTE | 2017-11-07 07:17 | PDOC.FM ---
- Subjective Subjective: Pt doing well this morning. Chest tubes pulled yesterday. Been having some trouble overnight with SOB. Reports O2 sats dropped at time. Denies any fever or chills. Reports being congested and having a little cough. Says he has taken mucinex in the past and helped. Pt reports pain being well managed. Denies any chest pain. - Objective MAR Reviewed: Yes Vital Signs & Weight: Vital Signs (12 hours) Temp Pulse Resp BP Pulse Ox 11/07/17 06:30 18 93 L 11/07/17 05:51 98.3 F 60 20 110/69 93 L 11/07/17 00:00 98.3 F 61 20 114/56 L 97 11/06/17 20:00 97.6 F 60 20 113/60 97 Weight Weight 107.139 kg Most Recent Monitor Data Heart Rate from ECG 70 NIBP 114/58 NIBP BP-Mean 68 Respiration from ECG 25 SpO2 97 I&O: 11/06/17 11/07/17 11/08/17 06:59 06:59 06:59 Intake Total 1859 1970 Output Total 1410 800 Balance 450 1170 Result Diagrams: 11/04/17 03:30 11/04/17 03:30 Radiology Reviewed by me: Yes (no new imaging to review) <Gonzalo Hancock - Last Filed: 11/07/17 07:15> - Objective Vital Signs & Weight: Vital Signs (12 hours) Temp Pulse Resp BP BP BP Pulse Ox 11/07/17 09:10 117/55 L 11/07/17 08:05 97.9 F 57 L 18 103/68 92 L 11/07/17 08:00 97.9 F 57 L 18 11/07/17 06:30 18 93 L 11/07/17 05:51 98.3 F 60 20 110/69 93 L 11/07/17 00:00 98.3 F 61 20 114/56 L 97 Weight Weight 107.139 kg Most Recent Monitor Data Heart Rate from ECG 70 NIBP 114/58 NIBP BP-Mean 68 Respiration from ECG 25 SpO2 97 I&O: 11/06/17 11/07/17 11/08/17 06:59 06:59 06:59 Intake Total 1859 1969 360 Output Total 1410 800 Balance 450 1170 360 Result Diagrams: 11/04/17 03:30 11/07/17 07:29 <Alex Ramos - Last Filed: 11/07/17 10:30> Phys Exam - Physical Examination Constitutional: NAD HEENT: PERRLA, moist MMs Neck: no nodes, no JVD, supple, full ROM Wheezing noted bilaterally. Decreased air movement. Some mild rales noted Cardiovascular: RRR, no significant murmur, no rub Gastrointestinal: soft, non-tender, no distention, positive bowel sounds Musculoskeletal: no edema, pulses present Neurological: non-focal, normal sensation Lymphatic: no nodes Psychiatric: normal affect, A&O x 3 Skin: no rash, cap refill <2 seconds <Gonzalo Hancock - Last Filed: 11/07/17 07:15> Dx/Plan (1) S/P CABG (coronary artery bypass graft) Code(s): Z95.1 - PRESENCE OF AORTOCORONARY BYPASS GRAFT Status: Acute (2) Acute coronary syndrome Code(s): I24.9 - ACUTE ISCHEMIC HEART DISEASE, UNSPECIFIED Status: Acute (3) CAD (coronary artery disease) Code(s): I25.10 - ATHSCL HEART DISEASE OF [place] CORONARY ARTERY W/O ANG PCTRS Status: Chronic (4) Dyslipidemia Code(s): E78.5 - HYPERLIPIDEMIA, UNSPECIFIED Status: Chronic (5) Hypertension Code(s): I10 - ESSENTIAL (PRIMARY) HYPERTENSION Status: Chronic - Plan Plan: (1) S/P CABG: Manage post-operatively per CV surg -post op day 5 -off pressors, Chest tube removed yesterday. A line removed -bp and HR stable -post op management per cv surg, cont post op management per cv surg -colace catie bid -Follow CV surg, Cardiology recs 2)Unstable Angina: - Hx of recent cath and JADEN placement about one month ago - pos CABG X3 post op day 5 (3) CAD: - s/p 2V cabg -manage per cv surg (4) GERD - Continue home meds (5) HTN - asa, statin, BB and jerry-i. Blood pressure stable. No need in adjusmtnet Pt chronic smoker. Could possibly have some underlying COPD. Some wheezes noted on physical exam. Pt having some SOB after Chest tubes pulled. -Will give Duonebs prn and px mucinex for congestion. Pt reports helped in past. <Gonzalo Hancock - Last Filed: 11/07/17 07:15> Attending Addendum - Attending Addendum Date/Time: 11/07/17 1029 I personally evaluated the patient and discussed the management with Dr. Hancock I agree with the History, Examination, Assessment and Plan documented above with any addition or exceptions noted below.Patient recovering well Out of bed to walk hallway chest tubes out. He will benefit from scheduled nebulizer treatment mild post ambulation wheezing noted on exam this AM. <Alex Ramos - Last Filed: 11/07/17 10:30>
[2017-11-07] MEDS ORDERED: Polyethylene Glycol 3350 17 GM Packet PO PRN (07:33)
[2017-11-07 08:05] LABS: Anion Gap 13 mmol/L (10-20); BUN (Urea Nitrogen) 13 mg/dL (8.4-25.7); Calc. Creatinine Clearance 133 mL/min (70-130); Calcium 9.1 mg/dL (7.8-10.44); Carbon Dioxide 25 mmol/L (23-31); Chloride 102 mmol/L (98-107); Estimated GFR-MDRD 89; Glucose 118 mg/dL (80-115); Potassium 3.8 mmol/L (3.5-5.1); Sodium 136 mmol/L (136-145)
[2017-11-07] MEDS: Furosemide 40 MG TAB PO SCH (09:10)
[2017-11-07] MEDS: Famotidine 20 MG TAB PO SCH ×2 (09:10→20:27)
[2017-11-07] MEDS: Lisinopril 5 MG TAB PO SCH (09:10)
[2017-11-07] MEDS: guaiFENesin ER 600 MG TAB PO SCH ×2 (09:10→20:27)
[2017-11-07] MEDS: Metoprolol Tartrate 25 MG TAB PO SCH ×2 (09:10→20:27)
[2017-11-07] MEDS: Aspirin 325 mg Enteric Coated Tablet PO SCH (09:10)
[2017-11-07] MEDS: Atorvastatin Calcium 20 MG TAB PO SCH (20:28)
[2017-11-08] MEDS: oxyCODONE/Acetaminophen 5 mg/325 mg Tablet PO PRN ×2 (02:13→06:50)
[2017-11-08 08:24] VITALS: TEMP 97.5
[2017-11-08] MEDS: Metoprolol Tartrate 25 MG TAB PO SCH (08:31)
[2017-11-08] MEDS: guaiFENesin ER 600 MG TAB PO SCH (08:31)
[2017-11-08] MEDS: Lisinopril 5 MG TAB PO SCH (08:31)
[2017-11-08] MEDS: Aspirin 325 mg Enteric Coated Tablet PO SCH (08:31)
[2017-11-08] MEDS: Famotidine 20 MG TAB PO SCH (08:31)
[2017-11-08] MEDS: Furosemide 40 MG TAB PO SCH (08:32)
--- NOTE | 2017-11-08 08:36 | PDOC.FM ---
- Subjective Subjective: No acute events overnight. Pt states he is ready to go home. Denies dizziness, lightheadedness, nvdc. Normal appetitie and po intake. Normal BM, w/o constipation/straining. Ok for dc to home. - Objective Vital Signs & Weight: Vital Signs (12 hours) Temp Pulse Resp BP Pulse Ox 11/08/17 08:22 97.5 F L 60 16 136/57 L 94 L 11/08/17 04:00 97.6 F 60 13 116/67 92 L 11/08/17 00:52 67 16 94 L Weight Weight 107.139 kg Most Recent Monitor Data Heart Rate from ECG 70 NIBP 114/58 NIBP BP-Mean 68 Respiration from ECG 25 SpO2 97 I&O: 11/07/17 11/08/17 11/09/17 06:59 06:59 06:59 Intake Total 1970 1080 Output Total 800 2200 Balance 1170 -1120 Result Diagrams: 11/04/17 03:30 11/07/17 07:29 Phys Exam - Physical Examination Constitutional: NAD HEENT: PERRLA, sclera anicteric Neck: no nodes, no JVD Respiratory: no wheezing, no rales coarse breath sounds in the bases Cardiovascular: RRR, no significant murmur, no rub Gastrointestinal: soft, non-tender, no distention, positive bowel sounds Musculoskeletal: no edema, pulses present Neurological: non-focal, moves all 4 limbs Psychiatric: normal affect Skin: no rash, cap refill <2 seconds Dx/Plan (1) S/P CABG (coronary artery bypass graft) Code(s): Z95.1 - PRESENCE OF AORTOCORONARY BYPASS GRAFT Status: Acute (2) Unstable angina Status: Acute (3) CAD (coronary artery disease) Code(s): I25.10 - ATHSCL HEART DISEASE OF [place] CORONARY ARTERY W/O ANG PCTRS Status: Chronic (4) Dyslipidemia Code(s): E78.5 - HYPERLIPIDEMIA, UNSPECIFIED Status: Chronic (5) Hypertension Code(s): I10 - ESSENTIAL (PRIMARY) HYPERTENSION Status: Chronic - Plan Plan: (1) S/P CABG: Manage post-operatively per CV surg -post op day 6 -bp and HR stable -post op management per cv surg, cont post op management per cv surg -colace catie bid -Follow CV surg, Cardiology recs -Ok for dc to home today 2)Unstable Angina: - Hx of recent cath and JADEN placement about one month ago - pos CABG X3 post op day 6 -DC to home today (3) CAD: - s/p 2V cabg -manage per cv surg -Ok for DC to home today (4) GERD - Continue home meds (5) HTN - asa, statin, BB and jerry-i. Blood pressure stable. No need in adjusmtnet -DC to home today, stable for DC.
--- NOTE | 2017-11-08 10:30 | PDOC.CTH ---
Cardiology Progress Note - Subjective Awake, sitting up in chair. Denies chest pain, shortness of breath, N/V/D. No incisional pain. Denies wheezing, has productive cough. Ambulating without difficulty. No overnight events. Scant serosang drainage from CT site. Ready to go home. - Objective Vital Signs Temp Pulse Resp BP Pulse Ox 11/08/17 08:22 97.5 F L 60 16 136/57 L 94 L 11/08/17 08:00 97.5 F L 60 16 11/08/17 04:00 97.6 F 60 13 116/67 92 L 11/08/17 00:52 67 16 94 L Weight 236 lb 3.2 oz 11/07/17 11/08/17 11/09/17 06:59 06:59 06:59 Intake Total 1970 1080 Output Total 800 2200 Balance 1170 -1120 - Physical Examination General/Neuro: alert & oriented x3, NAD Neck: no JVD present Lungs: unlabored respirations, other: (scattered rhonchi, clear with cough) Heart: RRR Abdomen: NT/ND, soft Other PE findings: LLE graft sites, midsternal incisions s/ oozing, erythema - Telemetry Telemetry Rhythm: SR - Labs Result Diagrams: 11/04/17 03:30 11/07/17 07:29 Troponin/CKMB CK-MB (CK-2) 1.3 ng/mL (0-6.6) 10/30/17 17:35 Troponin I 0.076 ng/mL (< 0.028) H 10/30/17 17:35 - Assessment/Plan 1.Severe CAD 2. S/P CABG x3-stable, home on BB, ECASA, ACEi, statin. 3.Hypotension-resolved. 4.S/P PM Home today. F/U Dr. Scott in 2 weeks.
[2017-11-08 11:36] VITALS: BP 170/78
== END 2017-11-08 10:42 | disposition home or self-care (01) | DRG 234 ==
LOC: ERS 07:32 → 2SW 11:07 → OBSVTOIN 11:07 → 2NO 10-31 14:47 → CCU 11-02 07:43 → 2NO 11-04 08:29
PROVIDERS: ADMIT Family Medicine; ATTEND Family Medicine
PROC: B2111ZZ Fluoroscopy of Multiple Coronary Arteries using Low Osmolar Contrast (ICD-10-PCS; 2017-11-01)
PROC: 02100Z9 Bypass Coronary Artery, One Artery from Left Internal Mammary, Open Approach (ICD-10-PCS; principal; 2017-11-02)
PROC: 021109W Bypass Coronary Artery, Two Arteries from Aorta with Autologous Venous Tissue, Open Approach (ICD-10-PCS; 2017-11-02)
PROC: 06BQ0ZZ Excision of Left Saphenous Vein, Open Approach (ICD-10-PCS; 2017-11-02)
PROC: 5A1221Z Performance of Cardiac Output, Continuous (ICD-10-PCS; 2017-11-02)
PROC: B24BZZ4 Ultrasonography of Heart with Aorta, Transesophageal (ICD-10-PCS; 2017-11-02)
PROC: 03HY32Z Insertion of Monitoring Device into Upper Artery, Percutaneous Approach (ICD-10-PCS; 2017-11-02)
PROC: 02HV33Z Insertion of Infusion Device into Superior Vena Cava, Percutaneous Approach (ICD-10-PCS; 2017-11-02)
PROC: B548ZZA Ultrasonography of Superior Vena Cava, Guidance (ICD-10-PCS; 2017-11-02)
DX: I25.110 Atherosclerotic heart disease of native coronary artery with unstable angina pectoris (principal); Z95.5 Presence of coronary angioplasty implant and graft; Z95.0 Presence of cardiac pacemaker; F17.210 Nicotine dependence, cigarettes, uncomplicated; K21.9 Gastro-esophageal reflux disease without esophagitis; I10 Essential (primary) hypertension; E78.5 Hyperlipidemia, unspecified; I95.9 Hypotension, unspecified; Z88.5 Allergy status to narcotic agent
CPT/HCPCS: 36415; 36416; 36430; 71045; 76942; 80048; 80053; 82553; 82805; 83690; 83880; 84484; 85025; 85610; 85730; 86850; 86900; 86901; 93005; 93010; 93454; 93798; 94002; 94150; 94640; 94760; 96372; A4216; C1769; J0282; J0690; J1642; J1644; J1650; J1815; J1885; J2001; J2250; J2370; J2440; J2550; J2704; J2720; J3010; J3370; J3480; J7050; J7620; P9045

== ENCOUNTER 2024-03-11 18:52 | Inpatient (IN) | payer MEDICARE, MEDICAID ==
[2024-03-11 19:26] LABS: #Basophils 0.09 10x3/uL (0.0-0.2); %Basophils 0.9 % (0.0-1.0); %Eosinophils 2.1 % (0.0-10.0); %Lymphocytes 24.5 % (21.0-51.0); %Monocytes 5.7 % (0.0-10.0); %Neutrophils 66.3 % (42.0-75.0); Hematocrit 49.9 % (42.0-52.0); Mean Corpuscular HGB CONC 34.1 g/dL (32.0-36.0); Mean Corpuscular Hemoglobin 31.1 pg (27.0-31.0); Mean Corpuscular Volume 91.4 fL (78.0-98.0); Platelet Count 168 10x3/uL (130-400); RBC Distribution Width 13.8 % (11.5-14.5); Red Blood Cell (RBC) Count 5.46 mill/uL (4.70-6.10)
[2024-03-11 19:40] LABS: ALT (SGPT) 28 U/L (8-55); AST (SGOT) 20 U/L (5-34); Albumin 4.1 g/dL (3.4-4.8); Alkaline Phosphatase 72 U/L (40-110); Anion Gap 10 mmol/L (10-20); BUN (Urea Nitrogen) 13 mg/dL (8.4-25.7); Calc. Creatinine Clearance 0 mL/min (70-130); Calcium 9.5 mg/dL (7.8-10.44); Carbon Dioxide 28 mmol/L (23-31); Chloride 106 mmol/L (98-107); Estimated GFR 75; Globulin 3.3 g/dL (2.4-3.5); Glucose 114 mg/dL (80-115); Protein, Total 7.4 g/dL (5.8-8.1); Sodium 140 mmol/L (136-145)
[2024-03-11 19:44] LABS: Troponin I Less than 0.010 ng/mL (< 0.028)
[2024-03-11] MEDS ORDERED: Senokot S 8.6-50 MG TAB PO PRN (21:21)
[2024-03-11] MEDS ORDERED: Calcium Carbonate 500 MG ChewTAB PO PRN (21:21)
[2024-03-11] MEDS ORDERED: Ondansetron PF 4 MG/2 ML Vial IVP PRN (21:21)
[2024-03-11] MEDS ORDERED: Atropine Sulfate 1 mg/10 ml Syringe IVP PRN (21:46)
[2024-03-11 22:14] VITALS: BMI 34.4
[2024-03-11] MEDS: Atorvastatin Calcium 20 MG TAB PO SCH (22:32)
[2024-03-12 05:27] LABS: #Basophils 0.11 10x3/uL (0.0-0.2); %Basophils 1.2 % (0.0-1.0); %Eosinophils 3.2 % (0.0-10.0); %Lymphocytes 40.3 % (21.0-51.0); %Monocytes 7.7 % (0.0-10.0); %Neutrophils 47.3 % (42.0-75.0); Hematocrit 49.1 % (42.0-52.0); Hemoglobin 16.1 g/dL (14.0-18.0); Mean Corpuscular HGB CONC 32.8 g/dL (32.0-36.0); Mean Corpuscular Hemoglobin 30.6 pg (27.0-31.0); Mean Corpuscular Volume 93.3 fL (78.0-98.0); Mean Platelet Volume 11.4 fL (7.4-10.4); Platelet Count 175 10x3/uL (130-400); RBC Distribution Width 13.9 % (11.5-14.5); Red Blood Cell (RBC) Count 5.26 mill/uL (4.70-6.10)
[2024-03-12 05:48] LABS: ALT (SGPT) 26 U/L (8-55); AST (SGOT) 18 U/L (5-34); Albumin 3.6 g/dL (3.4-4.8); Alkaline Phosphatase 63 U/L (40-110); Anion Gap 14 mmol/L (10-20); BUN (Urea Nitrogen) 11 mg/dL (8.4-25.7); Calc. Creatinine Clearance 91 mL/min (70-130); Carbon Dioxide 27 mmol/L (23-31); Chloride 106 mmol/L (98-107); Estimated GFR 66; Glucose 85 mg/dL (80-115); Magnesium 2.3 mg/dL (1.6-2.6); Potassium 3.7 mmol/L (3.5-5.1); Protein, Total 6.6 g/dL (5.8-8.1); Sodium 143 mmol/L (136-145)
[2024-03-12] MEDS: Mometasone 200 MCG/Formoterol 5 MCG 120 PUFF INHALER INH SCH (09:00)
[2024-03-12] MEDS: Aspirin 325 mg Enteric Coated Tablet PO SCH (09:51)
[2024-03-12] MEDS: Bupropion 150 MG SR.TAB PO SCH (09:51)
[2024-03-12] MEDS: Enoxaparin 40 MG (0.4 mL) SYRINGE SC SCH (09:51)
[2024-03-12] MEDS: Sertraline 100 MG TAB PO SCH (09:52)
[2024-03-12] MEDS: Acetaminophen 325 MG TAB PO PRN (13:41)
[2024-03-12] MEDS: Atorvastatin Calcium 40 MG TAB PO SCH (21:20)
[2024-03-12] MEDS: Gabapentin 300 MG CAP PO PRN (21:21)
[2024-03-13] MEDS ORDERED: CEFAZOLIN 1 GM VIAL ONE (08:30)
[2024-03-13] MEDS ORDERED: Gentamicin 80 MG/2 ML VIAL ONE (08:30)
[2024-03-13] MEDS ORDERED: CEFAZOLIN 2 GM VIAL ONE (09:18)
[2024-03-13 10:06] VITALS: TEMP 98
[2024-03-13 11:42] VITALS: BP 143/76
== END 2024-03-13 15:14 | disposition home or self-care (01) | DRG 259 ==
LOC: SUATTDRO 18:52 → ERS 18:52 → INTOOBSV 20:33 → 2NO 20:33 → OBSVTOIN 20:34
PROVIDERS: ADMIT Internal Medicine; ATTEND Internal Medicine
PROC: 0JPT0PZ Removal of Cardiac Rhythm Related Device from Trunk Subcutaneous Tissue and Fascia, Open Approach (ICD-10-PCS; principal; 2024-03-13)
PROC: 0JH606Z Insertion of Pacemaker, Dual Chamber into Chest Subcutaneous Tissue and Fascia, Open Approach (ICD-10-PCS; 2024-03-13)
DX: R00.1 Bradycardia, unspecified (principal); I49.5 Sick sinus syndrome; I10 Essential (primary) hypertension; E78.5 Hyperlipidemia, unspecified; I25.10 Atherosclerotic heart disease of native coronary artery without angina pectoris; G62.9 Polyneuropathy, unspecified; M19.90 Unspecified osteoarthritis, unspecified site; Z88.5 Allergy status to narcotic agent
CPT/HCPCS: 33228; 36415; 71045; 80053; 83735; 84484; 85025; 93005; 93010; C1785; J0690; J1580; J1650